=== PATIENT | female | born 1975 | race Caucasian/White ===

== ENCOUNTER 2018-04-21 16:01 | Outpatient (REF) | payer MEDICAID, SELFPAY ==
[2018-04-21 21:19] LABS: ALT 27 U/L (12-78); AST 18 U/L (15-37); Albumin 3.5 g/dL (3.4-5.0); Alkaline Phosphatase 60 U/L (46-116); Anion Gap 8.7 mmol/L (3-11); BUN 14 mg/dL (7-18); Bilirubin, Total 0.3 mg/dL (0.2-1.0); CO2 25.3 mmol/L (21.0-32.0); CREATININE 0.94 mg/dL (0.55-1.02); Chloride 106 mmol/L (98-107); Glucose 88 mg/dL (70-100); Sodium 140 mmol/L (136-145); Total Protein 7.3 g/dL (6.4-8.2)
== END 2018-04-21 16:21 ==
LOC: NCHCN 16:01
PROVIDERS: PCP Family Medicine; Visit Provider Physician Assistant Medical
DX: E03.9 Hypothyroidism, unspecified (principal); R79.89 Other specified abnormal findings of blood chemistry
CPT/HCPCS: 80053; 84443

== ENCOUNTER 2018-10-13 15:37 | Outpatient (REF) | payer OTHER, SELFPAY ==
[2018-10-13 19:25] LABS: ALT 25 U/L (12-78); AST 12 U/L (15-37); Albumin 3.7 g/dL (3.4-5.0); Alkaline Phosphatase 60 U/L (46-116); Anion Gap 8.8 mmol/L (3-11); BUN 15 mg/dL (7-18); Bilirubin, Total 0.4 mg/dL (0.2-1.0); CO2 25.2 mmol/L (21.0-32.0); CREATININE 1.03 mg/dL (0.55-1.02); Calcium 9.1 mg/dL (8.5-10.1); Chloride 106 mmol/L (98-107); Estimated GFR 58.76 (mL/min/1.73m2); Glucose 95 mg/dL (70-100); Potassium 3.9 mmol/L (3.5-5.1); Sodium 140 mmol/L (136-145); TSH 2.64 uIU/mL (0.358-3.74); Total Protein 7.2 g/dL (6.4-8.2)
[2018-10-13 19:33] LABS: Hemoglobin A1C 5.5 % (4.5-6.2)
== END 2018-10-13 15:57 ==
LOC: NCHCN 15:37
PROVIDERS: PCP Family Medicine; Visit Provider Physician Assistant Medical
DX: E03.9 Hypothyroidism, unspecified (principal)
CPT/HCPCS: 80053; 83036; 84443

== ENCOUNTER 2019-01-26 08:52 | Outpatient (REF) | payer OTHER, SELFPAY ==
[2019-01-26 19:37] LABS: Abs Immature Grans 0.04 k/cumm (0.0-0.09); Absolute Basophil Count 0.01 k/cumm (0.0-0.2); Absolute Eosinophil Count 0.08 k/cumm (0.0-0.7); Absolute Lymphocyte Count 1.71 k/cumm (1.2-3.4); Absolute Monocyte Count 0.46 k/cumm (0.11-0.7); Absolute Neutrophil Count 2.58 k/cumm (1.2-6.7); Basophils % 0.2; Eosinophils % 1.6; HCT 43.5 % (36.0-46.0); HGB 14.1 g/dL (12.0-15.5); Immature Grans % 0.8; Mean Corp. HGB Concentration 32.4 g/dL (32.0-36.0); Mean Corpuscular Hemoglobin 32.4 pg (27.0-33.0); Mean Platelet Volume 11.4 fL (8.0-11.0); Monocytes % 9.4; Platelet Count 203 x1000/uL (130-400); RBC 4.35 m/cumm (4.00-5.20); RBC Distribution Width 13.2 % (11.7-14.6); White Blood Cell Count 4.88 k/cumm (4.4-10.8)
== END 2019-01-26 09:12 ==
LOC: NCHCN 08:52
PROVIDERS: PCP Family Medicine; Visit Provider Nurse Practitioner Psychiatric/Mental Health
DX: Z79.899 Other long term (current) drug therapy (principal); F31.81 Bipolar II disorder
CPT/HCPCS: 80164; 85025

== ENCOUNTER → 2019-02-26 08:57 | Outpatient (BNVA) | payer OTHER, SELFPAY | PROVIDERS: PCP Family Medicine; Visit Provider Nurse Practitioner Adult Health | DX: G43.019 Migraine without aura, intractable, without status migrainosus (principal); G25.1 Drug-induced tremor; I10 Essential (primary) hypertension | CPT/HCPCS: 99213 ==

== ENCOUNTER 2019-03-07 20:59 | Outpatient (REF) | payer OTHER, SELFPAY ==
[2019-03-07 22:27] LABS: VALPROIC ACID 73.6 ug/mL (50-100)
== END 2019-03-07 21:19 ==
LOC: NCHCN 20:59
PROVIDERS: PCP Family Medicine; Visit Provider Nurse Practitioner Psychiatric/Mental Health
DX: Z79.899 Other long term (current) drug therapy (principal); Z51.81 Encounter for therapeutic drug level monitoring
CPT/HCPCS: 80164

== ENCOUNTER 2019-08-29 14:35 | Outpatient (REF) | payer OTHER, SELFPAY ==
[2019-08-29 23:08] LABS: Abs Immature Grans 0.04 k/cumm (0.0-0.09); Absolute Basophil Count 0.01 k/cumm (0.0-0.2); Absolute Neutrophil Count 2.59 k/cumm (1.2-6.7); Basophils % 0.2; Immature Grans % 0.8 %; Lymphocytes % 30.4; Mean Corp. HGB Concentration 34.1 g/dL (32.0-36.0); Mean Corpuscular Hemoglobin 34.9 pg (27.0-33.0); Mean Corpuscular Volume 102.3 fL (80-95); Mean Platelet Volume 11.2 fL (8.0-11.0); Monocytes % 14.2; Neutrophils % 52.4; Platelet Count 180 x1000/uL (130-400); RBC Distribution Width 12.6 % (11.7-14.6); White Blood Cell Count 4.94 k/cumm (4.4-10.8)
[2019-08-29 23:23] LABS: ALT 72 U/L (14-59); AST 69 U/L (15-37); Albumin 3.6 g/dL (3.4-5.0); Alkaline Phosphatase 53 U/L (46-116); Anion Gap 12.3 mmol/L (3-11); BUN 12 mg/dL (7-18); Bilirubin, Total 0.3 mg/dL (0.2-1.0); CO2 25.7 mmol/L (21.0-32.0); CREATININE 1.19 mg/dL (0.55-1.02); Calcium 9.2 mg/dL (8.5-10.1); Chloride 107 mmol/L (98-107); Estimated GFR 49.51 (mL/min/1.73m2); Glucose 85 mg/dL (74-106); Potassium 4.6 mmol/L (3.5-5.1); Sodium 145 mmol/L (136-145); Total Protein 7.2 g/dL (6.4-8.2)
[2019-08-29 23:24] LABS: VALPROIC ACID 75.6 ug/mL (50-100)
== END 2019-08-29 14:55 ==
LOC: NCHCN 14:35
PROVIDERS: PCP Family Medicine; Visit Provider Nurse Practitioner Psychiatric/Mental Health
DX: F31.81 Bipolar II disorder (principal); Z51.81 Encounter for therapeutic drug level monitoring; Z79.899 Other long term (current) drug therapy
CPT/HCPCS: 80053; 80164; 85025

== ENCOUNTER 2019-10-31 13:41 | Outpatient (REF) | payer OTHER, SELFPAY ==
[2019-10-31 20:36] LABS: ALT 28 U/L (14-59); AST 16 U/L (15-37); Albumin 3.3 g/dL (3.4-5.0); Alkaline Phosphatase 47 U/L (46-116); Bilirubin, Direct 0.13 mg/dL (0.00-0.20); Bilirubin, Total 0.6 mg/dL (0.2-1.0); Total Protein 6.4 g/dL (6.4-8.2)
== END 2019-10-31 14:01 ==
LOC: NCHCN 13:41
PROVIDERS: PCP Family Medicine; Visit Provider Nurse Practitioner Psychiatric/Mental Health
DX: R79.89 Other specified abnormal findings of blood chemistry (principal)
CPT/HCPCS: 80076

== ENCOUNTER 2020-05-06 11:33 | Outpatient (REF) | payer OTHER, SELFPAY ==
--- NOTE | 2020-05-06 09:30 | PAPFT_PTH ---
PATIENT: Julia Foster LOC: [facility] U#:[id number] AGE/SX: 44/F ROOM: RE05/06/[address]: Gayathri Mcneal : 1975 BED: DIS: 05/06/2020 SPEC #: [id number] RECD: 05/06/20 18:34 STATUS: RENE REQ #: [id number] CODEY: 05/06/20 09:[address]: Gayathri Mcneal DEPT: [facility] Cytology RECD BY: Eliana Abreu ENTERED: 05/06/20 18:34 SP TYPE: PAPFT OTHR DR: Lissette Shetty V Tissues: 1 - CX/ENDOCX FOR PAP SMEARS Procedures: PAP THIN PREP/UVM Screening HPV DNA PROBE Comments: [id number]
[2020-05-06 20:02] LABS: VALPROIC ACID 93.9 ug/mL (50-100)
[2020-05-06 20:05] LABS: Hemoglobin A1C 5.4 % (<5.7)
[2020-05-06 20:20] LABS: AST 83 U/L (15-37); Albumin 3.7 g/dL (3.4-5.0); Alkaline Phosphatase 57 U/L (46-116); Anion Gap 10.6 mmol/L (3-11); BUN 12 mg/dL (7-18); Bilirubin, Total 0.6 mg/dL (0.2-1.0); CO2 24.4 mmol/L (21.0-32.0); CREATININE 1.09 mg/dL (0.55-1.02); Calcium 8.7 mg/dL (8.5-10.1); Calculated LDL 129 mg/dL (<100); Chloride 104 mmol/L (98-107); Cholesterol 196 mg/dL (<200); Estimated GFR 54.78 (mL/min/1.73m2); Glucose 92 mg/dL (74-106); HDL Cholesterol 53 mg/dL (40-60); Potassium 4.5 mmol/L (3.5-5.1); Sodium 139 mmol/L (136-145); Triglyceride 73 mg/dL (<150)
[2020-05-06 20:42] LABS: ALT 99 U/L (14-59); TSH (W/Ref FT4) 3.64 uIU/mL (0.36-3.74); Total Protein 7.2 g/dL (6.4-8.2)
== END 2020-05-06 11:53 ==
LOC: NCHCN 11:33
PROVIDERS: PCP Family Medicine; Visit Provider Physician Assistant Medical
DX: E03.9 Hypothyroidism, unspecified (principal); R79.89 Other specified abnormal findings of blood chemistry; F10.10 Alcohol abuse, uncomplicated; G43.909 Migraine, unspecified, not intractable, without status migrainosus; F31.81 Bipolar II disorder; Z51.81 Encounter for therapeutic drug level monitoring; Z79.899 Other long term (current) drug therapy; K22.70 Barrett's esophagus without dysplasia; Z12.4 Encounter for screening for malignant neoplasm of cervix; Z87.42 Personal history of other diseases of the female genital tract
CPT/HCPCS: 80053; 80061; 88142; 80164; 83036; 84443; 87624

== ENCOUNTER 2021-03-03 12:22 | Inpatient (IN) | payer OTHER, SELFPAY ==
[2021-03-03] VITALS (85 sets, daily range): BP systolic 114–146; BP diastolic 20–96; PULSE 93–170; RESP 1–37; TEMP 32–36.2; O2SAT 86–99
--- NOTE | 2021-03-03 12:15 | RT.EKG_ITS ---
APPROVED REPORT Exam: Resting ECG Reason for Exam: dyspnea Patient Location: E HR:110 bpm ECG Measurements Heart Rate 110 AXIS OK 126 P 59 QRSd 82 QRS -10 QT 321 T 31 QTc 435 Conclusion Sinus tachycardia...rate> 99 Probable left atrial enlargement...P >50mS, <-0.10mV V1
--- NOTE | 2021-03-03 12:30 | DI.CT_ITS ---
Exam(s) CT CHEST PE CTA EXAM: CT CHEST PE CTA CLINICAL HISTORY: shortness of breath. TECHNIQUE: Imaging Protocol: Axial CT angiography was performed with multi-slice acquisition and mu lti-planar and/or 3D reconstructions. CONTRAST MATERIAL: Intravenous: Omnipaque 350 Contrast volume:81 cc COMPARISON: CT CHEST WITH CONTRAST from 02/10/2012 FINDINGS: Pulmonary Arteries: No evidence of filling defect to suggest pulmonary emboli. Tracheobronchial tree: Patent where visualized. Mediastinum and Nano: No dominant adenopathy or fluid collection. Moderate-sized hiatal hernia. Pulmonary parenchyma: Increased opacities both upper lobes consistent with pneumonitis. Minimal incr eased opacities bilateral lower lobes. No dominant measurable mass. Pleura: No effusion or pneumothorax. Heart: The heart is not dilated. No coronary artery calcifications are seen. Aorta: Thoracic aorta non-dilated. Upper abdomen: Unremarkable. Bones: Normal. IMPRESSION: Bilateral pneumonitis. No focal consolidation. No evidence of pulmonary embolism. RADIATION DOSE DELIVERED: 566.77mGy.cm Total DLP DATA REPOSITORY: All CT scans at this facility are submitted to the National Radiology Data Registry (NRDR) Dose Index Registry (DIR) with the [employer] (ACR). RADIATION OPTIMIZATION: All CT scans at this facility use at least one of these dose optimization te chniques: automated exposure control; mA and/or kV adjustment per patient size (includes targeted exa ms where dose is matched to clinical indication); or iterative reconstruction.
[2021-03-03 12:40] LABS: Abs Immature Grans 0.12 10^3/uL (0.0-0.06); Absolute Basophil Count 0.06 10^3/uL (0.0-0.2); Absolute Eosinophil Count 0.06 10^3/uL (0.0-0.7); Absolute Lymphocyte Count 1.48 10^3/uL (1.2-3.4); Absolute Monocyte Count 0.74 10^3/uL (0.1-0.8); Absolute Neutrophil Count 5.76 10^3/uL (1.2-6.7); BE (Venous) -2 mmol/L (-2-3); Basophils % 0.7; Eosinophils % 0.7; HCO3 (Venous) 24 mmol/L (23-28); HCT 47.7 % (36.0-46.0); HGB 15.5 g/dL (11.2-15.7); Immature Grans % 1.5; MCH 32.9 pg (27.0-33.0); MCHC 32.5 % (32.0-36.0); MCV 101.3 fL (80-95); MPV 10.2 fL (8.0-11.0); Neutrophils % 70.1; Nucleated RBC 0 %; O2 Sat (Venous) 52 %; Platelet Count 214 10^3/uL (130-400); RBC 4.71 10^6/uL (3.93-5.22); RDW 12.3 % (11.7-14.6); RDW-SD 46.5 fL; TCO2 (Venous) 22 mmol/L (24-29); WBC 8.22 10^3/uL (4.4-10.8); pCO2 (Venous) 46 mmHg (41-51); pH (Venous) 7.33 (7.31-7.41); pO2 (Venous) 28 mmHg
--- NOTE | 2021-03-03 12:50 | ED.GENADUL_ITS ---
Discharge Plan Disposition Patient Disposition: [facility] INPATIENT Condition: Stable Discharge Details Chief Complaint: SOB Clinical Impression: Asthma, Hypoxia Admit Date/Time: 03/03/21 14:17 Admit Provider: Chava Jackson Attending Provider: Chava Jackson Primary Care Provider: Lissette Shetty V ED Provider: Miquel Alejandra Medical Decision Making 45 yo female with hx of asthma, migraines, who comes in with a week of dyspnea and cough along with intermittent fever to 102 per patient. She went to urgent care today and was treated for asthma exacerbation with 3 duonebs and still was hypoxic in the mid 80's on room air so was transported here and was given another breathing treatment with ems, magnesium, and solumedrol with ems. She states she does feel better though still feels short of breath. Denies chest pain and is over 2 weeks from the J and J vaccine for covid. She denies ivdu, is a smoker, denies alcohol use. Denies recent travel. She does still have apical wheezing on exam with diminished breath sounds at the bases, is mildly tachyca rdic which could be from the beta agonists. No chest pain or pressure so unlikely acs, will obtain ecg and troponin to further evaluate. She has a wells score that is moderate given the hypoxia and tachycardia, will obtain CTA for PE to evaluate for PE vs pneumonia. Will treat with more beta agonists as well when she returns from CT pt feels improved but remains hypoxic and has wheezing on exam. CTA shows nonspecific pneumonitis. Given continued hypoxia will discuss with hospitalist about admission Differential Diagnosis Differential Diagnosis: pe, pneumonia, asthma Medical Records Medical records reviewed: Yes I reviewed the patient's medical records. Imaging Data Radiologic Study: Attestation: I personally reviewed and interpreted this imaging study as follows: Imaging: CT Scan Radiologist's impression: nonspecific pneumonitis Lab Data Lab results reviewed: Yes I reviewed the patient's lab results. ECG Data Attestation: I personally reviewed and interpreted this ECG (s) as follows: Prior ECG tracings: not available for review Interpretation: sinus tachycardia, rate of 110, no acute st t wave ischemic findings HPI General Mode of arrival: ambulatory . Date/Time Provider Initiated Documentation: 03/03/21 12:37 . Limitations to Documentation: no limitations . Information obtained by: patient . History of Present Illness 45 year old F presents to the emergency department with the chief complaint of shortness of breath, described as moderate, Patient reports no radiation. Patient started experiencing this week(s) (1) and it has been constant. No relieving factors improve symptom(s), No exacerbating factors reported . Patient notes cough. Related Data Home Medications Medication Instructions Recorded Confirmed ipratropium-albuterol [Duoneb 0.5 3 ml INHALATION q 6hrs 04/24/14 03/03/21 Mg-3 Mg/3 Ml Soln] albuterol sulfate [Proair Hfa] 2 puff INHALATION Q4H PRN inhaler 01/06/16 03/03/21 pantoprazole 40 mg PO DAILY tab-cap 01/06/16 02/26/19 levothyroxine 75 mcg PO DAILY tab-cap 01/04/18 03/03/21 hydroxyzine HCl 50 mg tablet See Rx Instructions PO Q4H PRN #90 08/31/18 03/03/21 tab-cap fluoxetine 10 mg capsule 10 mg PO DAILY 12/14/18 03/03/21 divalproex 500 mg tablet,extended 1,500 mg PO DAILY #90 tab 02/08/19 03/03/21 release 24 hr gabapentin 300 mg capsule 600 mg PO QHS cap 02/26/19 03/03/21 lurasidone 40 mg tablet 40 mg PO DAILY 02/26/19 03/03/21 topiramate 100 mg tablet 100 mg PO HS #90 tab-cap 09/25/19 03/03/21 topiramate 50 mg tablet 50 mg PO HS #90 tab-cap 09/25/19 03/03/21 Previous Rx's Medication Instructions Recorded hydroxyzine HCl 50 mg tablet See Rx Instructions PO Q4H PRN #90 08/31/18 tab-cap divalproex 500 mg tablet,extended 1,500 mg PO DAILY #90 tab 02/08/19 release 24 hr topiramate 100 mg tablet 100 mg PO HS #90 tab-cap 09/25/19 topiramate 50 mg tablet 50 mg PO HS #90 tab-cap 09/25/19 Allergies Allergy/AdvReac Type Severity Reaction Status Date / Time azithromycin [From Zithromax] Allergy Mild Unverified 03/03/21 12:41 bupropion HCl Allergy Mild Unverified 03/03/21 12:41 [From Wellbutrin] egg Allergy Mild Unverified 03/03/21 12:41 scopolamine Allergy Mild Unverified 03/03/21 12:41 [From Transderm-Scop] shellfish derived Allergy Mild Unverified 03/03/21 12:41 Penicillins Allergy Hives Unverified 03/03/21 12:41 prochlorperazine edisylate Allergy Dystonic Unverified 03/03/21 12:41 [From Compazine] reaction Sulfa (Sulfonamide Allergy Hives Unverified 03/03/21 12:41 Antibiotics) General Stated Complaint: SOB MONIK: 2 Review of Systems All systems reviewed & are unremarkable except as noted in HPI and below Constitutional Constitutional: Denies weakness Gastrointestinal Gastrointestinal: Denies abdominal pain, Denies nausea and Denies vomiting Musculoskeletal Musculoskeletal: Denies joint swelling Neurologic Neurologic: Denies weakness Psychiatric Psychiatric: Denies depression [facility] Medical History (Updated 03/03/21 @ 15:45 by Miquel Alejandra MD) Asthma Episodic when has chest infections/ uses rescue inhaler Barretts esophagus Bipolar disorder Depression (emotion) Rx'd / Past history of Essential tremor GERD (gastroesophageal reflux disease) Hypertension With OC use many years ago. Resolved Migraine Mild renal insufficiency Obstructive sleep apnea Surgical History L shoulder dislocation with arthroscopic surgery 2007 Meniscectomy L knee 2003 [place] Fundoplication 2009 Family History Other Diabetes Hyperlipidemia Personal history of malignant neoplasm Social History Smoking/Tobacco Use Status: Current every day Tobacco Type: cigarettes Smoking risk assessment performed?: Yes Alcohol Intake: never Drug use: Never Do you feel safe at home: Yes Do you feel safe in your relationship?: Yes Exam Const General: no acute distress Orientation: alert HENMT Head: normal to inspection Ears: external ears normal General nose exam: external nose normal Mouth: moist mucous membranes Eyes General: appearance normal, both eyes and all related structures Neck Neck: normal visual inspection Resp Effort & Inspection: no retractions, tachypneic and no use of accessory muscles Cardio Rate: tachycardic Skin General skin exam: no rashes or lesions noted Neuro General: patient alert and patient oriented x3 Extrem General: normal to inspection Psych Mental Status: mental status grossly normal Course Vital Signs Vital signs: Vital Signs Temperature 36.2 C L 03/03/21 12:26 Pulse 113 H 03/03/21 12:26 Respiratory Rate 20 03/03/21 12:26 Blood Pressure 131/85 03/03/21 12:26 Pulse Oximetry 88 L 03/03/21 12:26 Temperature 36.2 C L 03/03/21 12:26 Temperature Source Temporal Artery Scan 03/03/21 12:26 Pulse 113 H 03/03/21 12:26 Respiratory Rate 20 03/03/21 12:26 Respiratory Effort Accessory Muscle Use 03/03/21 12:37 Blood Pressure 131/85 03/03/21 12:26 Blood Pressure Position Supine 03/03/21 12:26 Pulse Oximetry 88 L 03/03/21 12:26 Oxygen Delivery Method Room Air 03/03/21 12:26 Oxygen Flow Rate 0 03/03/21 12:26 Pain Level 0 03/03/21 12:26 Lab/Test Results Lab/Test Results: Laboratory Tests Range/Units 03/03/21 03/03/21 12:30 12:30 WBC (4.4-10.8) 10^3/uL 8.22 RBC (3.93-5.22) 10^6/uL 4.71 Hgb (11.2-15.7) g/dL 15.5 Hct (36.0-46.0) % 47.7 H MCV (80-95) fL 101.3 H MCH (27.0-33.0) pg 32.9 MCHC (32.0-36.0) % 32.5 RDW (11.7-14.6) % 12.3 Plt Count (130-400) 10^3/uL 214 MPV (8.0-11.0) fL 10.2 Immature Gran % 1.5 Neutrophils % 70.1 Lymphocytes % 18.0 Monocytes % 9.0 Eosinophils % 0.7 Basophils % 0.7 Nucleated RBC % % 0 Absolute Neutrophils (1.2-6.7) 10^3/uL 5.76 Absolute Lymphocytes (1.2-3.4) 10^3/uL 1.48 Absolute Monocytes (0.1-0.8) 10^3/uL 0.74 Absolute Eosinophils (0.0-0.7) 10^3/uL 0.06 Absolute Basophils (0.0-0.2) 10^3/uL 0.06 VBG pH (7.31-7.41) 7.33 VBG pCO2 (41-51) mmHg 46 VBG pO2 mmHg 28 VBG HCO3 (23-28) mmol/L 24 VBG Total CO2 (24-29) mmol/L 22 L VBG O2 Saturation % 52 VBG Base Excess (-2-3) mmol/L -2
[2021-03-03 13:00] LABS: Source Nasal/Nares
[2021-03-03 13:05] LABS: ALT 42 U/L (14-59); AST 43 U/L (15-37); Albumin 3.5 g/dL (3.4-5.0); Alkaline Phosphatase 63 U/L (46-116); Anion Gap 9.4 mmol/L (3-11); BUN 11 mg/dL (7-18); CO2 25.6 mmol/L (21.0-32.0); CREATININE 1.1 mg/dL (0.55-1.02); Calcium 9.6 mg/dL (8.5-10.1); Chloride 104 mmol/L (98-107); Estimated GFR 53.96 (mL/min/1.73m2); Glucose 131 mg/dL (74-106); Magnesium 2.9 mg/dL (1.8-2.4); NT-proBNP 79 pg/mL (<300); Potassium 4.6 mmol/L (3.5-5.1); Sodium 139 mmol/L (136-145); TSH (W/Ref FT4) 4.24 uIU/mL (0.36-3.74); Total Protein 8.1 g/dL (6.4-8.2)
[2021-03-03 13:09] LABS: Troponin I < 0.05 ng/mL (<0.06)
[2021-03-03 13:29] LABS: FREE T4 1.04 ng/dL (0.76-1.46)
[2021-03-03] MEDS: Omnipaque 350 MG/ML 100 ML BTL IJ (13:32)
[2021-03-03] MEDS: Normal Saline - Diluent 50 ML VIAL IV (13:33)
[2021-03-03 14:00] LABS: COVID-19 PCR Negative (Negative)
--- NOTE | 2021-03-03 15:38 | PUCC_ITS ---
General Date of Service Date of service: 03/03/21 Time of Service: 14:30 Admit Date Admit Date: 03/03/21 Reason for Admission to ICU: Hypoxia, continuous albuterol, high supplemental oxygen requirements Assessment and Plan Assessment and plan (1) Respiratory failure with hypoxia: Status: Acute Qualifiers: Chronicity: acute Qualified Code(s): J96.01 - Acute respiratory failure with hypoxia (2) Abnormal chest CT: Status: Acute Assessment and plan: This is a 45-year-old woman with a past medical history of migraines and asthma (well-controlled) who presents in acute hypoxic respiratory failure due to an unknown cause. On exam she does have some intermittent wheezing that is present as well as radiographic evidence of airway inflammation however the likely cause of her respiratory failure is likely due to the process which is causing the small infiltrate. The differential diagnosis for her presenting symptoms and imaging results would include infection versus inflammation, although she does not appear to be toxic and feel a bacterial infection is less likely at this time. These findings could represent an atypical presentation of a typical pneumonia, typical presentation of an atypical pneumonia, and noninfectious inflammatory causes such as a pneumonitis or an autoimmune (Rheumatoid) or vasculitic(Goodpasture's or granulomatosis with polyangiitis) cause. She has not had hemoptysis but has reported blood in her urine that began approximately the same time as her respiratory decline. Given this finding and the appearance of her chest CT we should rule out autoimmune and vasculitic conditions. She certainly should remain in the ICU if she continues to recover require higher amounts of supplemental oxygen and what is safe and appropriate for the floor. See recommendation below. Subjective Critical and life-threatening events over the past 24 hours: This is a 45-year-old woman with a medical history of asthma and migraines who presents today after a 1 week history of worsening shortness of breath. She states that approximately 1 week ago she started feeling as though she had a cold that went into her chest and made her asthma worse. She states that over the past week her breathing has progressively worsened to the point of calling her doctor's office today. She was unable to be seen by her PCP and so she was a direct did go to urgent care. Upon arrival at urgent care her oxygen saturations were reportedly in the mid 80s on room air despite having received 3 [id number]-[id number] nebulizer treatments. She was then transported via EMS received additional nebulizer treatments, magnesium, and Solu-Medrol. She tells me that over the last week she has been experiencing fevers of up to 102 ?F. She also states that she began to notice blood in her urine that began approximately the same time as her respiratory troubles. She denies any change in her vision, she does endorse acid reflux has been treated with a PPI for this, she has significant shortness of breath without associated chest pain, she does not have any abdominal pain and denies any rashes or easy bleeding. She is a current smoker approximately half a pack a day. She states that she had quit however during Covid restarted smoking. She began smoking at the age of 19. She denies any e-cigarette use or vaping. She denies inhalation of any other substances. She does not have a personal or family history of autoimmune disease. She was diagnosed with asthma as a child and states that her asthma has been very well controlled to the point of not requiring any inhalers for the past few months. She does state that she has had approximately 4 diagnosed episodes of pneumonia in the past. She states nothing like this has ever happened to her before. All labs and diagnostic images were personally reviewed, with significant findings as below: Chest CTA 03/03/21 My impression: No PE, no large LAD. There are bilateral upper lobe predominant ground glass infiltrates with some associated septal thickening. There are thickened airways throughout. No bronchiectasis is present. There is significant mosaicism. This is not classic for cardiogenic pulmonary edema. The differential diagnosis is infectious vs inflammatory. Labs: WBC: 8.22, 70% neutrophils, with a neutrophil:lymphocyte ratio of 3.9 Eosinophil: 0.06 VB.33/46 Cr: 1.1 (lower than recent baseline) LFT's ok COVID negative Exam Narrative Exam Narrative: Patient with significant tremors and tachycardia, noted to be from high amounts of albuterol BP 125/20, HR 133, SpO2 95% on 4L NC Const General: acute distress moderate Nutritional Appearance: obese Orientation: alert, awake and oriented x3 HENMT Head: normocephalic and atraumatic Ears: external ears normal and no periauricular adenopathy General nose exam: nasal mucous membranes and turbinates normal Face and sinus: normal facial exam Mouth: oropharynx normal, moist mucous membranes and other (Mallampati 3) Throat: uvula midline Eyes General: appearance normal, both eyes and all related structures Pupils: PERRL Neck Neck: normal visual inspection, no lymphadenopathy and trachea midline Chest Chest: normal inspection of the chest Resp Effort & Inspection: normal respiratory effort Auscultation: clear to auscultation bilaterally, rales (Upper lung thompson) fariha aterally, no rhonchi and wheezes (intermittent scattered expiratory ) Cardio Rate: tachycardic Rhythm: regular rhythm Heart Sounds: S1 normal, S2 normal and no murmurs Pulses: radial pulses present bilaterally GI Inspection: normal to inspection Palpation: soft Skin General skin exam: no rashes or lesions noted Neuro General: patient alert, patient awake and patient oriented x3 Extrem General: no clubbing, cyanosis or edema Psych Mental Status: mental status grossly normal Affect: normal affect Attitude: cooperative Review of Systems All systems reviewed & are unremarkable except as noted in HPI and below Constitutional Constitutional: Reports malaise Eyes Eyes: Denies blind spots and Denies blurry vision ENT Ears, Nose, Mouth, and Throat: Reports as per HPI Cardiovascular Cardiovascular: Denies leg edema and Reports dyspnea Respiratory Respiratory: Reports cough (dry) and Reports dyspnea Gastrointestinal Gastrointestinal: Reports as per HPI Genitourinary Genitourinary: Reports amenorrhea and Reports other (Blood in urine) Musculoskeletal Musculoskeletal: Denies arthralgias and Denies muscle weakness Integumentary/Breasts Skin/Breast: Denies rash Neurologic Neurologic: Reports system reviewed and no additional complaints, except as documented Psychiatric Psychiatric: Reports system reviewed and no additional complaints, except as documented Endocrine Endocrine: Reports system reviewed and no additional complaints, except as documented Hematologic/Lymphatic Hematologic/Lymphatic: Reports system reviewed and no additional complaints, except as documented Allergic/Immunologic Allergic/Immunologic: Reports system reviewed and no additional complaints, except as documented Recommendations Pulmonary: Acute hypoxic respiratory failure - maintain sats >90% - if higher O2 requirements as needed for this, would recommend high flow nasal cannula to achieve this - Incentive Spirometry - Duonebs scheduled q4hr with prn albuterol q2hrs as needed - I would stay away from continuous albuterol as it provoked significant tremors and tachycardia Abnormal chest CT - would recommend checking an SOFIE, RF, and ANCA - would check urine strep pneumo and legionella antigens - would start prednisone 40mg tomorrow (received 125mg methylpred today) Cardiac: Tachycardia - avoid continuous albuterol - would avoid treating medically unless HR>150 persistently or patient becomes unstable Renal: Reported Hematuria - would obtain a UA to assess for blood (last UA from 2014) I&O: Intake & Output 02/28/21 03/01/21 03/02/21 03/03/21 23:59 23:59 23:59 23:59 Weight 99.3 kg Daily Fluid Goal:: Even to negative 500cc GI Nutrition: Mild AST elevation - no work up needed Infectious Disease: CT infiltrates - sputum stain and culture if possible - would treat for CAP (ceftriaxone and doxycycline - allergy to azithromycin listed in chart) - would measure IgA, IgE, IgG, IgG subclasses and IgM given report of recurrent pneumonias Hematologic: Chronic Macrocytosis - can consider measuring B12 Neurologic: History of Migraines - No acute concerns - followed by neurology as an outpatient Endocrine: Mildly elevated TSH - likely represents euthyroid sick syndrome - no need for further work up Lines: - PIV currently adequate Prophylaxis: DVT prophylaxis recommended - Lovenox would be appropriate Patient on PPI at home, would continue here Code Status: Resuscitation Status Full Code
[2021-03-03 16:02] LABS: Troponin I < 0.05 ng/mL (<0.06)
[2021-03-03] MEDS: LORazepam 1 MG TAB PO (17:22)
[2021-03-03] MEDS: Heparin 5,000 UNITS/ML VIAL 5000 UNITS SC (17:26)
[2021-03-03] MEDS: Levalbuterol 0.63 MG/3 ML UPD VIAL UPD ×2 (18:05→21:00)
[2021-03-03] MEDS: Ipratropium 0.5 MG/2.5 ML UPD VIAL UPD ×2 (18:08→21:00)
[2021-03-03] MEDS: Lurasidone 40 MG TAB 80 MG PO (20:59)
[2021-03-03] MEDS: Pantoprazole 40 MG TABCR PO (20:59)
[2021-03-03] MEDS: Divalproex 500 MG TABEC 1500 MG PO (20:59)
[2021-03-03] MEDS: Topiramate 100 MG TAB 200 MG PO (21:06)
[2021-03-03] MEDS: Gabapentin 300 MG CAP PO (21:06)
[2021-03-03] MEDS: guaiFENesin/D-METHORPHAN HB 5 ML CUP 10 ML PO (23:40)
[2021-03-04] VITALS (150 sets, daily range): BP systolic 99–128; BP diastolic 56–90; PULSE 78–133; RESP 1–40; TEMP 31–36.9; O2SAT 84–98
[2021-03-04] MEDS: Ipratropium 0.5 MG/2.5 ML UPD VIAL UPD ×6 (01:18→22:05)
[2021-03-04] MEDS: Heparin 5,000 UNITS/ML VIAL 5000 UNITS SC ×3 (01:19→18:21)
[2021-03-04] MEDS: Levalbuterol 0.63 MG/3 ML UPD VIAL UPD ×6 (01:19→21:56)
[2021-03-04] MEDS: guaiFENesin/D-METHORPHAN HB 5 ML CUP 10 ML PO ×2 (04:41→12:04)
[2021-03-04] MEDS: Levothyroxine 75 MCG TAB PO (06:10)
[2021-03-04 06:41] LABS: Abs Immature Grans 0.11 10^3/uL (0.0-0.06); Absolute Basophil Count 0.03 10^3/uL (0.0-0.2); Absolute Eosinophil Count 0.01 10^3/uL (0.0-0.7); Absolute Monocyte Count 1.96 10^3/uL (0.1-0.8); Basophils % 0.2; Eosinophils % 0.1; HCT 42.7 % (36.0-46.0); HGB 14.2 g/dL (11.2-15.7); Immature Grans % 0.8; Lymphocytes % 12.4; MCH 32.9 pg (27.0-33.0); MCHC 33.3 % (32.0-36.0); MCV 98.8 fL (80-95); MPV 10.5 fL (8.0-11.0); Neutrophils % 72.5; Nucleated RBC 0 %; Platelet Count 227 10^3/uL (130-400); RBC 4.32 10^6/uL (3.93-5.22); RDW 12.5 % (11.7-14.6)
[2021-03-04 06:44] LABS: Absolute Lymphocyte Count 1.74 10^3/uL (1.2-3.4); Absolute Neutrophil Count 10.15 10^3/uL (1.2-6.7)
[2021-03-04 06:58] LABS: Anion Gap 6.8 mmol/L (3-11); BUN 14 mg/dL (7-18); CO2 27.2 mmol/L (21.0-32.0); CREATININE 1.1 mg/dL (0.55-1.02); Calcium 9.4 mg/dL (8.5-10.1); Chloride 101 mmol/L (98-107); Estimated GFR 53.96 (mL/min/1.73m2); Glucose 129 mg/dL (74-106); Potassium 4.7 mmol/L (3.5-5.1); Sodium 135 mmol/L (136-145)
[2021-03-04 07:08] LABS: Diff Comment Agrees w/ Instrument; RBC Morphology Normal
--- NOTE | 2021-03-04 07:36 | HPE_ITS ---
Date of service: 03/03/21 Time of Service: 16:26 Assessment and Plan Assessment and plan (1) Respiratory failure with hypoxia: Status: Acute Assessment and plan: Pulmonology consulted. Supplemental O2 per high-flow system initiated. Scheduled duonebs (xopenx substituted for albuterol) Q4H Xopenex neb Q2H prn. Will initiate prednisone 40mg daily in the AM. Received IV solumedrol on day of admission. Qualifiers: Chronicity: acute Qualified Code(s): J96.01 - Acute respiratory failure with hypoxia (2) Abnormal chest CT: Status: Acute Assessment and plan: Pulmonary following. Inflammatory vs infectious. SOFIE, ANCA, Ig subgroups. Ceftriaxone and doxycycline initiated. Urine legionella and strep pneumo urine antigens ordered; are send out tests and take several days to receive results. (3) Hypertension: Status: None Assessment and plan: SBP in the 130-140's. Cont lisinopril 20mg daily. Monitor. (4) Essential tremor: Status: Acute Assessment and plan: Now with significant BUE tremor secondary to the nebulized albuterol she has received. (5) Bipolar disorder: Status: Chronic Assessment and plan: Cont fluoxetine and Latuda. (6) Migraine headache: Status: Chronic Assessment and plan: No current KAM Cont Depakote. History of Present Illness History of Present Illness Chief Complaint: Shortness of breath Narrative: This is a 45 yo female with a PMH of asthma, IHSAN, migraine headaches. She presented to the ED with c/o appx 1 week history of progressively worsening shortness of air. Her symptoms were initially head congestion, then chest congestion and cough. She was unable to see her PCP on the day of admission and was directed to Urgent Care. She received 3 [id number] nebulized albuterol txs. Her O2 saturations there were reported to be in the mid 80's on RA after the treatments. EMS transported the patient to [facility] ED. She was administered solumedrol 125mg IV enrout, as well as a nebulized Duoneb and magnesium. She endorsed a fever of 102F recently. No purulent sputum. No N/V/diarrhea. She is a smoker; had stopped but during COVID last year she restarted. She does not use a CPAP for her sleep apnea. She has not required using her albuterol for a long period of time until this episode of illness. Her WBC count was normal. Cr of 1.1. COVID was negative. CTA chest was negative for pulmonary embolism. [employer] reading was bilateral upper lobe predominant ground glass infiltrates. Thickened airways throughout. Significant mosaicism. Infectious vs inflammatory. Review of Systems All systems reviewed & are unremarkable except as noted in HPI and below PFSH Medical History (Updated 03/04/21 @ 12:22 by Chava Jackson MD) Asthma Episodic when has chest infections/ uses rescue inhaler Barretts esophagus Bipolar disorder Depression (emotion) Rx'd / Past history of Essential tremor GERD (gastroesophageal reflux disease) Hypertension With OC use many years ago. Resolved Migraine Mild renal insufficiency Obstructive sleep apnea Surgical History L shoulder dislocation with arthroscopic surgery 2007 Meniscectomy L knee 2003 [place] Fundoplication 2009 Family History Other Diabetes Hyperlipidemia Personal history of malignant neoplasm Social History Smoking/Tobacco Use Status: Current every day Tobacco Type: cigarettes Smoking risk assessment performed?: Yes Alcohol Intake: never Drug use: Never Do you feel safe at home: Yes Do you feel safe in your relationship?: Yes Meds Allergies and Home Medications Allergies Allergy/AdvReac Type Severity Reaction Status Date / Time azithromycin [From Zithromax] Allergy Mild Unverified 03/03/21 12:41 bupropion HCl Allergy Mild Unverified 03/03/21 12:41 [From Wellbutrin] egg Allergy Mild Unverified 03/03/21 12:41 scopolamine Allergy Mild Unverified 03/03/21 12:41 [From Transderm-Scop] shellfish derived Allergy Mild Unverified 03/03/21 12:41 Penicillins Allergy Hives Unverified 03/03/21 12:41 prochlorperazine edisylate Allergy Dystonic Unverified 03/03/21 12:41 [From Compazine] reaction Sulfa (Sulfonamide Allergy Hives Unverified 03/03/21 12:41 Antibiotics) Home Medications Medication Instructions Recorded Confirmed Type albuterol sulfate [Proair Hfa] 2 puff INHALATION Q4H PRN inhaler 01/06/16 03/03/21 History levothyroxine 75 mcg PO DAILY tab-cap 01/04/18 03/03/21 History fluoxetine 10 mg capsule 10 mg PO DAILY 12/14/18 03/03/21 History gabapentin 300 mg capsule 300 mg PO QHS cap 02/26/19 03/03/21 History divalproex 1,500 mg PO DAILY 03/03/21 03/03/21 History fluticasone propionate [Flovent 1 inh INHALATION BID 03/03/21 03/03/21 History HFA] lisinopril 20 mg PO DAILY 03/03/21 03/03/21 History lurasidone [Latuda] 80 mg PO QPM 03/03/21 03/03/21 History pantoprazole 40 mg PO BID 03/03/21 03/03/21 History topiramate 200 mg PO DAILY 03/03/21 03/03/21 History Exam Const General: cooperative and no acute distress Nutritional Appearance: obese Orientation: alert and oriented x3 Eyes Sclera: sclerae normal Pupils: PERRL Neck Neck: normal visual inspection and no JVD Resp Effort & Inspection: normal respiratory effort Auscultation: diminished lung sounds and no wheezes Cardio Rate: tachycardic Rhythm: regular rhythm Heart Sounds: S1 normal and S2 normal GI Palpation: soft and nontender Skin General skin exam: no rashes or lesions noted Extrem General: no pedal edema and no calf tenderness Psych Appearance: grossly normal Mental Status: mental status grossly normal Speech and Movement: speech and movement normal Affect: normal affect Results Labs Result diagrams: 03/04/21 06:05 03/04/21 06:05 Labs: Laboratory Results - last 24 hr 03/03/21 03/03/21 03/03/21 12:30 12:30 12:30 WBC 8.22 RBC 4.71 Hgb 15.5 Hct 47.7 H MCV 101.3 H MCH 32.9 MCHC 32.5 RDW 12.3 Plt Count 214 MPV 10.2 Immature Gran % 1.5 Neutrophils % 70.1 Lymphocytes % 18.0 Monocytes % 9.0 Eosinophils % 0.7 Basophils % 0.7 Nucleated RBC % 0 Absolute Neutrophils 5.76 Absolute Lymphocytes 1.48 Absolute Monocytes 0.74 Absolute Eosinophils 0.06 Absolute Basophils 0.06 RBC Morphology VBG pH 7.33 VBG pCO2 46 VBG pO2 28 VBG HCO3 24 VBG Total CO2 22 L VBG O2 Saturation 52 VBG Base Excess -2 Sodium 139 Potassium 4.6 Chloride 104 Carbon Dioxide 25.6 Anion Gap 9.4 BUN 11 Creatinine 1.1 H Estimated GFR/1.73 m2 53.96 Glucose 131 H Calcium 9.6 Magnesium 2.9 H Total Bilirubin 1.0 AST 43 H ALT 42 Alkaline Phosphatase 63 Troponin I < 0.05 NT-Pro-B Natriuret Pep 79 Total Protein 8.1 Albumin 3.5 TSH 4.24 H Free T4 1.04 COVID-19 Source SARS-CoV-2 (PCR) 03/03/21 03/03/21 03/04/21 12:55 15:30 06:05 WBC RBC Hgb Hct MCV MCH MCHC RDW Plt Count MPV Immature Gran % Neutrophils % Lymphocytes % Monocytes % Eosinophils % Basophils % Nucleated RBC % Absolute Neutrophils Absolute Lymphocytes Absolute Monocytes Absolute Eosinophils Absolute Basophils RBC Morphology VBG pH VBG pCO2 VBG pO2 VBG HCO3 VBG Total CO2 VBG O2 Saturation VBG Base Excess Sodium 135 L Potassium 4.7 Chloride 101 Carbon Dioxide 27.2 Anion Gap 6.8 BUN 14 Creatinine 1.1 H Estimated GFR/1.73 m2 53.96 Glucose 129 H Calcium 9.4 Magnesium 2.0 Total Bilirubin AST ALT Alkaline Phosphatase Troponin I < 0.05 NT-Pro-B Natriuret Pep Total Protein Albumin TSH Free T4 COVID-19 Source Nasal/Nares SARS-CoV-2 (PCR) Negative 03/04/21 06:05 WBC 14.00 H D RBC 4.32 Hgb 14.2 Hct 42.7 MCV 98.8 H MCH 32.9 MCHC 33.3 RDW 12.5 Plt Count 227 MPV 10.5 Immature Gran % 0.8 Neutrophils % 72.5 Lymphocytes % 12.4 Monocytes % 14.0 Eosinophils % 0.1 Basophils % 0.2 Nucleated RBC % 0 Absolute Neutrophils 10.15 H Absolute Lymphocytes 1.74 Absolute Monocytes 1.96 H Absolute Eosinophils 0.01 Absolute Basophils 0.03 RBC Morphology Normal VBG pH VBG pCO2 VBG pO2 VBG HCO3 VBG Total CO2 VBG O2 Saturation VBG Base Excess Sodium Potassium Chloride Carbon Dioxide Anion Gap BUN Creatinine Estimated GFR/1.73 m2 Glucose Calcium Magnesium Total Bilirubin AST ALT Alkaline Phosphatase Troponin I NT-Pro-B Natriuret Pep Total Protein Albumin TSH Free T4 COVID-19 Source SARS-CoV-2 (PCR) Last Vital Signs Temp 36.2 C L 03/03/21 20:12 Pulse 96 H 03/04/21 06:01 Resp 18 03/04/21 06:01 BP 126/82 03/04/21 06:01 Pulse Ox 97 03/04/21 06:01
[2021-03-04] MEDS: Mometasone 220 MCG 14 DOSE INHALER IH (07:52)
--- NOTE | 2021-03-04 08:21 | PUCC_ITS ---
General Date of Service Date of service: 03/04/21 Time of Service: 08:00 Admit Date Admit Date: 03/03/20 Reason for Admission to ICU: Hypoxic respiratory failure Assessment and Plan Assessment and plan (1) Respiratory failure with hypoxia: Status: Acute Qualifiers: Chronicity: acute Qualified Code(s): J96.01 - Acute respiratory failure with hypoxia (2) Abnormal chest CT: Status: Acute Assessment and plan: This is a 45-year-old woman with a past medical history of migraines, IHSAN (not on CPAP) and asthma (well-controlled) who presents in acute hypoxic respiratory failure due to an unknown cause. On exam she does has wheezing that is present as well as radiographic evidence of airway inflammation however the likely cause of her respiratory failure is likely due to the process which is causing the small infiltrate. The differential diagnosis for her presenting symptoms and imaging results would include infection versus inflammation, although she does not appear to be toxic and feel a bacterial infection is less likely at this time. These findings could represent an atypical presentation of a typical pneumonia, typical presentation of an atypical pneumonia, and noninfectious inflammatory causes such as a pneumonitis or an autoimmune (Rheumatoid) or vasculitic(Goodpasture's or granulomatosis with polyangiitis) cause. She has not had hemoptysis but has reported blood in her urine that began approximately the same time as her respiratory decline. Given this finding and the appearance of her chest CT we should rule out autoimmune and vasculitic conditions. She certainly should remain in the ICU if she continues to recover require higher amounts of supp lemental oxygen and what is safe and appropriate for the floor. See recommendation below. Subjective Critical and life-threatening events over the past 24 hours: Patient desaturated overnight, was placed on high flow nasal cannula, currently on 40/40 Patient states that she is feeling ok. She believes her breathing is slightly improved from yesterday. New labs and imaging: WBC count now 14 with 72.5% neutrophils Exam Narrative Exam Narrative: Tremors improved. Temp: 36.4 BP 126/82 MAP 92, HR 96, SpO2 97% on 40%/40L High flow nasal cannula Const General: acute distress moderate Nutritional Appearance: obese Orientation: alert, awake and oriented x3 HENMT Head: normocephalic and atraumatic Ears: external ears normal and no periauricular adenopathy General nose exam: nasal mucous membranes and turbinates normal Face and sinus: normal facial exam Mouth: oropharynx normal, moist mucous membranes and other (Mallampati 3) Throat: uvula midline Eyes General: appearance normal, both eyes and all related structures Pupils: PERRL Neck Neck: normal visual inspection, no lymphadenopathy and trachea midline Chest Chest: normal inspection of the chest Resp Effort & Inspection: normal respiratory effort Auscultation: clear to auscultation bilaterally, rales (Upper lung thompson) bilaterally, no rhonchi and wheezes expiratory wheezes, lower bilaterally and upper bilaterally Cardio Rate: regular rate Rhythm: regular rhythm Heart Sounds: S1 normal, S2 normal and no murmurs Pulses: radial pulses present bilaterally GI Inspection: normal to inspection Palpation: soft Skin General skin exam: no rashes or lesions noted Neuro General: patient alert, patient awake and patient oriented x3 Extrem General: no clubbing, cyanosis or edema Psych Mental Status: mental status grossly normal Affect: normal affect Attitude: cooperative Review of Systems All systems reviewed & are unremarkable except as noted in HPI and below Constitutional Constitutional: Reports malaise Eyes Eyes: Denies blind spots and Denies blurry vision ENT Ears, Nose, Mouth, and Throat: Reports as per HPI Cardiovascular Cardiovascular: Denies leg edema and Reports dyspnea Respiratory Respiratory: Reports cough (dry) and Reports dyspnea Gastrointestinal Gastrointestinal: Reports as per HPI Genitourinary Genitourinary: Reports amenorrhea and Reports other (Blood in urine) Musculoskeletal Musculoskeletal: Denies arthralgias and Denies muscle weakness Integumentary/Breasts Skin/Breast: Denies rash Neurologic Neurologic: Reports system reviewed and no additional complaints, except as documented Psychiatric Psychiatric: Reports system reviewed and no additional complaints, except as do cumented Endocrine Endocrine: Reports system reviewed and no additional complaints, except as documented Hematologic/Lymphatic Hematologic/Lymphatic: Reports system reviewed and no additional complaints, except as documented Allergic/Immunologic Allergic/Immunologic: Reports system reviewed and no additional complaints, except as documented Recommendations Pulmonary: Acute hypoxic respiratory failure - maintain sats >90% - wean HFNC as able - Incentive Spirometry - Xopenex and Atrovent nebs q4hrs good, would add prn albuterol q2hrs as needed - low grade tachycardia is unlikely to cause any concerning hemodynamic abnormalities in this yound patient - She likely does not need the inhaled mometasone given the systemic steroids, but there is no harm in doing this either Abnormal chest CT - would recommend checking an SOFIE, RF, and ANCA - would check urine strep pneumo and legionella antigens - would continue with prednisone 40mg daily for now IHSAN not on CPAP - she likely desaturated at home given her untreated IHSAN - would be reasonable to allow sats to 85% while sleeping to allow FiO2 weaning Cardiac: Tachycardia, improved - avoid continuous albuterol - would avoid treating medically unless HR>150 persistently or patient becomes unstable Renal: Hematuria - obtain UA to assess for blood/protein I&O: Intake & Output 03/01/21 03/02/21 03/03/21 03/04/21 23:59 23:59 23:59 23:59 Intake Total 1740 / 1740 700 / 700 Output Total 650 / 650 550 / 550 Balance 1090 / 1090 150 / 150 Weight 94.6 kg Daily Fluid Goal:: - she was positive 1L yesterday, this may be detrimental to her respiratory status dry lungs are happy lungs - would recommend diuresis with 40mg IV Lasix today to ensure a -500cc fluid balance GI Nutrition: Mild AST elevation - no work up needed Nutrition - normal diet fine Date of Last Bowel Movement: 03/03/21 Infectious Disease: CT infiltrates - sputum stain and culture if possible - would treat for CAP (ceftriaxone and doxycycline - allergy to azithromycin listed in chart) - would measure IgA, IgE, IgG, IgG subclasses and IgM given report of recurrent pneumonias Neurologic: History of Migraines - No acute concerns Endocrine: Chronic Macrocytosis - can consider measuring B12 Lines: - PIV currently adequate Prophylaxis: DVT prophylaxis recommended - Lovenox would be appropriate Patient on PPI at home, would continue here Code Status: Resuscitation Status Full Code
[2021-03-04] MEDS: Pantoprazole 40 MG TABCR PO ×2 (08:31→20:09)
[2021-03-04] MEDS: FLUoxetine 10 MG TAB PO (08:31)
[2021-03-04] MEDS: Lisinopril 20 MG TAB PO (08:31)
[2021-03-04] MEDS: predniSONE 20 MG TAB 40 MG PO (08:31)
[2021-03-04] MEDS: Benzonatate 200 MG CAP PO ×3 (08:32→20:07)
[2021-03-04] MEDS: cefTRIAXone 1 GM/50 ML BAG IVPB (10:14)
[2021-03-04 10:20] LABS: Bilirubin Small (Negative); Blood Large (Negative); Clarity Cloudy (Clear); Glucose Negative (Negative); Ketones Trace mg/dL (Negative); Leukocyte Esterase Trace (Negative); Nitrite Negative (Negative); Specific Gravity 1.015 (1.005-1.025)
[2021-03-04] MEDS: Normal Saline Flush 10 ML SYR IVP ×2 (10:25→16:48)
[2021-03-04 10:26] LABS: Bacteria Many HPF (Negative); C & S Indicated? Yes; Casts Negative LPF (Negative); Crystals Negative HPF (Negative); Epithelial Cells Rare HPF (Negative); Mucus Negative (Negative); Other Cells Negative (Negative); RBC >50 HPF (0-2)
[2021-03-04] MEDS: DOXYCYCLINE 100 MG in Normal Saline 100 ML IVPB (11:57)
--- NOTE | 2021-03-04 12:21 | PHA.REVIEW ---
Pharmacy Admission Review - Admission Clinical Review (Last Reviewed 02/26/19 @ 12:32 by Lori Hardy) Abnormal chest CT (Acute) Respiratory failure with hypoxia (Acute) Hypoxia (Acute) Asthma (Acute 05/27/14) azithromycin [From Zithromax] Allergy (Mild, Unverified 03/03/21 12:41) bupropion HCl [From Wellbutrin] Allergy (Mild, Unverified 03/03/21 12:41) egg Allergy (Mild, Unverified 03/03/21 12:41) scopolamine [From Transderm-Scop] Allergy (Mild, Unverified 03/03/21 12:41) shellfish derived Allergy (Mild, Unverified 03/03/21 12:41) Penicillins Allergy (Unverified 03/03/21 12:41) Hives prochlorperazine edisylate [From Compazine] Allergy (Unverified 03/03/21 12:41) Dystonic reaction Sulfa (Sulfonamide Antibiotics) Allergy (Unverified 03/03/21 12:41) Hives Resuscitation Status Full Code Height 5 ft 3 in Weight 94.6 kg - Renal Dosing Renal Dosing: BUN 14 mg/dL (7-18) 03/04/21 06:05 Creatinine 1.1 mg/dL (0.55-1.02) H 03/04/21 06:05 Medications needing adjustments: Reviewed List of meds needing interventions: eCrCl is 71 ml/min using adjusted bw - Anticoagulation Anticoagulation: Hgb 14.2 g/dL (11.2-15.7) 03/04/21 06:05 Hct 42.7 % (36.0-46.0) 03/04/21 06:05 Plt Count 227 10^3/uL (130-400) 03/04/21 06:05 Creatinine 1.1 mg/dL (0.55-1.02) H 03/04/21 06:05 DVT Prophylaxis: Reviewed Medications: Heparin - Opiate Usage Evaluate Pain Scale/Pains Meds: N/A - Relevant Labs Sodium 135 mmol/L (136-145) L 03/04/21 06:05 Potassium 4.7 mmol/L (3.5-5.1) 03/04/21 06:05 Chloride 101 mmol/L (98-107) 03/04/21 06:05 Magnesium 2.0 mg/dL (1.8-2.4) 03/04/21 06:05 Electrolytes, C-Reactive P, ESR: Reviewed - DM Control DM Control: Glucose 129 mg/dL (74-106) H 03/04/21 06:05 Insulin Dosing: N/A - Heart Failure/ND Heart Failure/ND: Troponin I < 0.05 ng/mL (<0.06) 03/03/21 15:30 NT-Pro-B Natriuret Pep 79 pg/mL (<300) 03/03/21 12:30 EF%, TAE's, B-Blockers, Diuretics: Reviewed - BP Control BP Control: Blood Pressure [Left Arm] 117/77 Blood Pressure [Left Arm] 120/78 Blood Pressure [Left Arm] 121/64 Blood Pressure 126/82 Blood Pressure 120/78 Blood Pressure 116/75 If elevated: Reviewed - Qtc Review If Elevated: Reviewed List meds needing interventions: QTc 435 on admission - IV to PO Switch IV Medications: Reviewed - Home Meds Home Med List reviewed: Reviewed Relevent Home Meds Not ordered & why?: all ordered - Current meds Current Medication Order Review: Reviewed (Ceftriazone 1gm q24h + Doxycyline started (abnormal chest ct, inflammation vs infectious))
--- NOTE | 2021-03-04 12:28 | W.PM.PROGNOT ---
Date of Service Date of service: 03/04/21 Time of Service: 12:28 Assessment and Plan Assessment and plan (1) Respiratory failure with hypoxia: Status: Acute Assessment and plan: Pulmonology consult appreciated. Supplemental O2 per high-flow system initiated. Required higher flow during the night likely d/t sleep apnea. Cont scheduled duonebs (xopenx substituted for albuterol) Q4H Xopenex neb Q2H prn. Now on prednisone 40mg daily in the AM. Received IV solumedrol on day of admission. Qualifiers: Chronicity: acute Qualified Code(s): J96.01 - Acute respiratory failure with hypoxia (2) Abnormal chest CT: Status: Acute Assessment and plan: Pulmonary following. Inflammatory vs infectious. SOFIE, ANCA, Ig subgroups. Ceftriaxone and doxycycline initiated. Urine legionella and strep pneumo urine antigens ordered; are send out tests and take several days to receive results. (3) Hypertension: Status: None Assessment and plan: SBP in the 130-140's. Cont lisinopril 20mg daily. Controlled. Monitor. (4) Essential tremor: Status: Acute Assessment and plan: No tremor noted this AM. (5) Bipolar disorder: Status: Chronic Assessment and plan: Cont fluoxetine and Latuda. (6) Migraine headache: Status: Chronic Assessment and plan: No current KAM Cont Depakote. Subjective Subjective Patient reports: feels better, tolerating a regular diet and afebrile; denies diarrhea, nausea and vomiting Interval history since last seen: BUE tremor has improved significantly. Exam Const General: cooperative and no acute distress Nutritional Appearance: obese Orientation: alert and oriented x3 Eyes Sclera: sclerae normal Pupils: PERRL Neck Neck: normal visual inspection and no JVD Resp Effort & Inspection: normal respiratory effort Auscultation: diminished lung sounds and no wheezes Cardio Rate: tachycardic Rhythm: regular rhythm Heart Sounds: S1 normal and S2 normal GI Palpation: soft and nontender Skin General skin exam: no rashes or lesions noted Extrem General: no pedal edema and no calf tenderness Psych Appearance: grossly normal Mental Status: mental status grossly normal Speech and Movement: speech and movement normal Affect: normal affect Objective Last Vital Signs Temp 36.2 C L 03/04/21 08:17 Pulse 95 H 03/04/21 08:17 Resp 30 H 03/04/21 08:17 BP 117/77 03/04/21 08:17 Pulse Ox 97 03/04/21 08:17 Laboratory Results - last 24 hr 03/03/21 03/03/21 03/03/21 12:30 12:30 12:30 WBC 8.22 RBC 4.71 Hgb 15.5 Hct 47.7 H MCV 101.3 H MCH 32.9 MCHC 32.5 RDW 12.3 Plt Count 214 MPV 10.2 Immature Gran % 1.5 Neutrophils % 70.1 Lymphocytes % 18.0 Monocytes % 9.0 Eosinophils % 0.7 Basophils % 0.7 Nucleated RBC % 0 Absolute Neutrophils 5.76 Absolute Lymphocytes 1.48 Absolute Monocytes 0.74 Absolute Eosinophils 0.06 Absolute Basophils 0.06 RBC Morphology VBG pH 7.33 VBG pCO2 46 VBG pO2 28 VBG HCO3 24 VBG Total CO2 22 L VBG O2 Saturation 52 VBG Base Excess -2 Sodium 139 Potassium 4.6 Chloride 104 Carbon Dioxide 25.6 Anion Gap 9.4 BUN 11 Creatinine 1.1 H Estimated GFR/1.73 m2 53.96 Glucose 131 H Calcium 9.6 Magnesium 2.9 H Total Bilirubin 1.0 AST 43 H ALT 42 Alkaline Phosphatase 63 Troponin I < 0.05 NT-Pro-B Natriuret Pep 79 Total Protein 8.1 Albumin 3.5 TSH 4.24 H Free T4 1.04 Urine Color Urine Clarity Urine pH Ur Specific [place] Urine Protein Urine Ketones Urine Blood Urine Nitrite Urine Bilirubin Urine Urobilinogen Ur Leukocyte Esterase Urine RBC Urine WBC Ur Epithelial Cells Urine Crystals Urine Bacteria Urine Casts Urine Mucus Urine Other Ur Culture Indicated? Urine Glucose COVID-19 Source SARS-CoV-2 (PCR) Ur Strep pneumoniae Ag 03/03/21 03/03/21 03/04/21 12:55 15:30 06:05 WBC RBC Hgb Hct MCV MCH MCHC RDW Plt Count MPV Immature Gran % Neutrophils % Lymphocytes % Monocytes % Eosinophils % Basophils % Nucleated RBC % Absolute Neutrophils Absolute Lymphocytes Absolute Monocytes Absolute Eosinophils Absolute Basophils RBC Morphology VBG pH VBG pCO2 VBG pO2 VBG HCO3 VBG Total CO2 VBG O2 Saturation VBG Base Excess Sodium 135 L Potassium 4.7 Chloride 101 Carbon Dioxide 27.2 Anion Gap 6.8 BUN 14 Creatinine 1.1 H Estimated GFR/1.73 m2 53.96 Glucose 129 H Calcium 9.4 Magnesium 2.0 Total Bilirubin AST ALT Alkaline Phosphatase Troponin I < 0.05 NT-Pro-B Natriuret Pep Total Protein Albumin TSH Free T4 Urine Color Urine Clarity Urine pH Ur Specific [place] Urine Protein Urine Ketones Urine Blood Urine Nitrite Urine Bilirubin Urine Urobilinogen Ur Leukocyte Esterase Urine RBC Urine WBC Ur Epithelial Cells Urine Crystals Urine Bacteria Urine Casts Urine Mucus Urine Other Ur Culture Indicated? Urine Glucose COVID-19 Source Nasal/Nares SARS-CoV-2 (PCR) Negative Ur Strep pneumoniae Ag 03/04/21 03/04/21 03/04/21 06:05 09:28 09:28 WBC 14.00 H D RBC 4.32 Hgb 14.2 Hct 42.7 MCV 98.8 H MCH 32.9 MCHC 33.3 RDW 12.5 Plt Count 227 MPV 10.5 Immature Gran % 0.8 Neutrophils % 72.5 Lymphocytes % 12.4 Monocytes % 14.0 Eosinophils % 0.1 Basophils % 0.2 Nucleated RBC % 0 Absolute Neutrophils 10.15 H Absolute Lymphocytes 1.74 Absolute Monocytes 1.96 H Absolute Eosinophils 0.01 Absolute Basophils 0.03 RBC Morphology Normal VBG pH VBG pCO2 VBG pO2 VBG HCO3 VBG Total CO2 VBG O2 Saturation VBG Base Excess Sodium Potassium Chloride Carbon Dioxide Anion Gap BUN Creatinine Estimated GFR/1.73 m2 Glucose Calcium Magnesium Total Bilirubin AST ALT Alkaline Phosphatase Troponin I NT-Pro-B Natriuret Pep Total Protein Albumin TSH Free T4 Urine Color Red Urine Clarity Cloudy Urine pH 7.0 Ur Specific [place] 1.015 Urine Protein 100 H Urine Ketones Trace H Urine Blood Large H Urine Nitrite Negative Urine Bilirubin Small H Urine Urobilinogen 1.0 H Ur Leukocyte Esterase Trace H Urine RBC >50 H Urine WBC 5-10 Ur Epithelial Cells Rare Urine Crystals Negative Urine Bacteria Many Urine Casts Negative Urine Mucus Negative Urine Other Negative Ur Culture Indicated? Yes Urine Glucose Negative COVID-19 Source SARS-CoV-2 (PCR) Ur Strep pneumoniae Ag Cancelled
--- NOTE | 2021-03-04 13:59 | INITIAL_ITS ---
- If Service Date Differs Date of service: 03/04/21 Time of Service: 13:59 Care Management Initial Assess REASON FOR HOSPITALIZATION:: respiratory failure with hypoxia PAST MEDICAL HISTORY/PAST SURGICAL HISTORY:: Medical History (Updated 03/04/21 @ 12:22 by Chava Jackson MD). Asthma. Episodic when has chest infections/ uses rescue inhaler. Barretts esophagus. Bipolar disorder. Depression (emotion). Rx'd / Past history of. Essential tremor. GERD (gastroesophageal reflux disease). Hypertension. With OC use many years ago. Resolved. Migraine. Mild renal insufficiency. Obstructive sleep apnea. Surgical History . L shoulder dislocation with arthroscopic surgery. 2007. Meniscectomy. L knee 2002. Gonzales Fundoplication. 20 PREVIOUS FUNCTIONAL STATUS/SOCIAL/FAMILY SUPPORTS:: Julia lives in an apartment in [place], [place] with her 17 year old daughter. 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 Julia also has a 21 year old son who is in [employer] and is stationed [employer]. Julia is but remains from her . She is independent at baseline. CURRENT FUNCTIONAL STATUS:: Julia was sitting up in bed wjen CM met with her. She stated that she is still feeling quite ill. She shared that she first got sick about 10 days ago and has not improved. Julia's PCP is louis Mcneal from [facility], which is why she has come to [facility] for treatment. ADVANCE DIRECTIVES:: States she has them in [place] but no copy on file at [facility]. Has patient been provided with info about the portal/API?: Yes Did the patient sign up for the portal?: No CODE STATUS:: Full Code INSURANCE COVERAGE / FINANCIAL ISSUES:: [facility] CURRENT HOME/COMMUNITY SERVICES/EQUIPMENT:: none PRIMARY CARE PHYSICIAN:: Louis Mcneal POTENTIAL DISCHARGE NEEDS:: Follow up with PCP and plan of care PATIENT/FAMILY EDUCATION NEEDS:: Review of discharge instructions, medications, activity, follow up plan, Ask Me Three TRANSPORTATION:: via private vehicle with family PLAN:: Julia will be discharged home with no new services. She will follow up with her PCP and plan of care and transport with family. CM will continue to support Julia and assess for discharge planning needs.
[2021-03-04] MEDS: Acetaminophen 325 MG TAB 650 MG PO (14:44)
[2021-03-04 17:11] LABS: Rheumatoid Factor 56.2 IU/mL (<12.0)
[2021-03-04] MEDS: Lurasidone 40 MG TAB 80 MG PO (20:06)
[2021-03-04] MEDS: Divalproex 500 MG TABEC 1500 MG PO (20:07)
[2021-03-04 20:35] LABS: Legionella Ag Detection Urine Negative (Negative)
[2021-03-04] MEDS: Topiramate 100 MG TAB 200 MG PO (21:54)
[2021-03-04] MEDS: Gabapentin 300 MG CAP PO (21:55)
[2021-03-05] VITALS (14 sets, daily range): BP systolic 102–117; BP diastolic 63–81; PULSE 79–94; RESP 4–19; TEMP 36.3–37; O2SAT 91–94
[2021-03-05] MEDS: DOXYCYCLINE 100 MG in Normal Saline 100 ML IVPB ×3 (01:06→23:50)
[2021-03-05] MEDS: Ipratropium 0.5 MG/2.5 ML UPD VIAL UPD ×6 (01:07→22:23)
[2021-03-05] MEDS: Normal Saline Flush 10 ML SYR IVP ×2 (01:07→23:51)
[2021-03-05] MEDS: Heparin 5,000 UNITS/ML VIAL 5000 UNITS SC ×3 (01:11→17:10)
[2021-03-05] MEDS: Levalbuterol 0.63 MG/3 ML UPD VIAL UPD ×6 (01:16→22:11)
[2021-03-05] MEDS: Levothyroxine 75 MCG TAB PO (05:49)
[2021-03-05 06:46] LABS: HCT 43.4 % (36.0-46.0); HGB 14.6 g/dL (11.2-15.7); MCH 33.9 pg (27.0-33.0); MCHC 33.6 % (32.0-36.0); MCV 100.7 fL (80-95); MPV 10.1 fL (8.0-11.0); Platelet Count 257 10^3/uL (130-400); RBC 4.31 10^6/uL (3.93-5.22); RDW 12.8 % (11.7-14.6); RDW-SD 47.7 fL; WBC 13.45 10^3/uL (4.4-10.8)
[2021-03-05] MEDS: Mometasone 220 MCG 14 DOSE INHALER IH (07:59)
--- NOTE | 2021-03-05 08:01 | PDOC.CMPRO ---
- If Service Date Differs Date of service: 03/05/21 Time of Service: 08:02 Care Management Progress Note S/O:Julia was sitting up in a chair when CM met with her this morning. She was smiling brightly and stated that she is feeling much better. She was taken off high flow oxygen last evening and her oxygen saturation levels have been between 91 and 93% on room air today. Once again, when questioned, Julia denied the need for any new services at discharge as she has her daughter to help her at home. A: Julia is a 45 year old woman admitted on 03/03/21 with Pneumonitis P:Julia will be discharged home with no new services. She will follow up with her PCP and plan of care and transport with family. CM will continue to support Julia and assess for discharge planning needs.
[2021-03-05] MEDS: Benzonatate 200 MG CAP PO ×3 (08:23→19:16)
[2021-03-05] MEDS: FLUoxetine 10 MG TAB PO (08:23)
[2021-03-05] MEDS: Pantoprazole 40 MG TABCR PO ×2 (08:23→19:16)
[2021-03-05] MEDS: predniSONE 20 MG TAB 40 MG PO (08:23)
[2021-03-05] MEDS: Lisinopril 20 MG TAB PO (08:23)
[2021-03-05] MEDS: cefTRIAXone 1 GM/50 ML BAG IVPB (10:09)
--- NOTE | 2021-03-05 11:30 | CHAPLAIN ---
Julia was sitting up in the chair when I visited. She said she's feeling ok. She's in touch with her daughter by phone, but her daughter has not yet been vaccinated so she won't be coming in to visit Julia.
[2021-03-05] MEDS: guaiFENesin/D-METHORPHAN HB 5 ML CUP 10 ML PO ×2 (12:10→20:45)
[2021-03-05 14:49] LABS: Streptococcus Pneumoniae Ag, U Negative (Negative)
[2021-03-05 15:13] LABS: ANCA Interpretation Negative (Negative)
--- NOTE | 2021-03-05 15:56 | W.PM.PROGNOT ---
Date of Service Date of service: 03/05/21 Time of Service: 15:56 Assessment and Plan Assessment and plan (1) Respiratory failure with hypoxia: Status: Acute Assessment and plan: Pulmonology consulted and following. weaned off supplemental O2 Cont scheduled duonebs (xopenx substituted for albuterol) Q4H Xopenex neb Q2H prn. Now on prednisone 40mg daily in the AM. Qualifiers: Chronicity: acute Qualified Code(s): J96.01 - Acute respiratory failure with hypoxia (2) Abnormal chest CT: Status: Acute Assessment and plan: Pulmonary following. Inflammatory vs infectious. SOFIE, ANCA, Ig subgroups. Ceftriaxone and doxycycline initiated. Urine legionella and strep pneumo urine antigens ordered; are send out tests and take several days to receive results. (3) Hypertension: Status: None Assessment and plan: SBP in the 130-140's. Cont lisinopril 20mg daily. Controlled. Monitor. (4) Essential tremor: Status: Acute Assessment and plan: No tremor noted this AM. (5) Bipolar disorder: Status: Chronic Assessment and plan: Cont fluoxetine and Latuda. (6) Migraine headache: Status: Chronic Assessment and plan: No current KAM Cont Depakote. (7) Discharge planning issues: Status: Acute Assessment and plan: plan to discharge home tomorrow if remains medically stable. discussed with Dr Jackson. Subjective Subjective Patient reports: no new complaints, feels better, tolerating liquids well, tolerating a regular diet and afebrile; denies shortness of breath Interval history since last seen: weaned off oxygen. still coughing but non productive and improved. Exam Const General: cooperative and no acute distress Nutritional Appearance: obese Orientation: alert and oriented x3 Eyes Sclera: sclerae normal Pupils: PERRL Neck Neck: normal visual inspection and no JVD Resp Effort & Inspection: normal respiratory effort Auscultation: diminished lung sounds and no wheezes Cardio Rate: tachycardic Rhythm: regular rhythm Heart Sounds: S1 normal and S2 normal GI Palpation: soft and nontender Skin General skin exam: no rashes or lesions noted Extrem General: no pedal edema and no calf tenderness Psych Appearance: grossly normal Mental Status: mental status grossly normal Speech and Movement: speech and movement normal Affect: normal affect Objective Last Vital Signs Temp 36.5 C 03/05/21 15:22 Pulse 80 03/05/21 15:22 Resp 17 03/05/21 15:22 BP 102/63 03/05/21 15:22 Pulse Ox 92 03/05/21 15:22 Laboratory Results - last 24 hr 03/04/21 03/04/21 03/04/21 06:05 09:28 11:55 WBC RBC Hgb Hct MCV MCH MCHC RDW Plt Count MPV Rheumatoid Factor 56.2 H ANCA Immunofluorescen Negative ANCA Titer Not Applicable ANCA Pattern Not Applicable Urine Legionella Ag Negative Ur Strep pneumoniae Ag Negative 03/05/21 06:25 WBC 13.45 H RBC 4.31 Hgb 14.6 Hct 43.4 MCV 100.7 H MCH 33.9 H MCHC 33.6 RDW 12.8 Plt Count 257 MPV 10.1 Rheumatoid Factor ANCA Immunofluorescen ANCA Titer ANCA Pattern Urine Legionella Ag Ur Strep pneumoniae Ag
[2021-03-05] MEDS: Divalproex 500 MG TABEC 1500 MG PO (19:16)
[2021-03-05] MEDS: Lurasidone 40 MG TAB 80 MG PO (19:16)
[2021-03-05] MEDS: Topiramate 100 MG TAB 200 MG PO (22:08)
[2021-03-05] MEDS: Gabapentin 300 MG CAP PO (22:09)
[2021-03-05] MEDS: Normal Saline 500 ML IV (23:51)
[2021-03-06] VITALS (9 sets, daily range): BP systolic 107–113; BP diastolic 70–72; PULSE 83–85; RESP 4–18; TEMP 36.3–36.9; O2SAT 92–94
[2021-03-06] MEDS: Levalbuterol 0.63 MG/3 ML UPD VIAL UPD ×4 (01:20→13:41)
[2021-03-06] MEDS: Heparin 5,000 UNITS/ML VIAL 5000 UNITS SC ×2 (01:20→09:26)
[2021-03-06] MEDS: Normal Saline Flush 10 ML SYR IVP (01:20)
[2021-03-06] MEDS: Ipratropium 0.5 MG/2.5 ML UPD VIAL UPD ×4 (01:20→13:42)
[2021-03-06] MEDS: Levothyroxine 75 MCG TAB PO (06:12)
[2021-03-06] MEDS: FLUoxetine 10 MG TAB PO (07:06)
[2021-03-06] MEDS: Benzonatate 200 MG CAP PO ×2 (07:06→13:42)
[2021-03-06] MEDS: Lisinopril 20 MG TAB PO (07:07)
[2021-03-06] MEDS: Pantoprazole 40 MG TABCR PO (07:07)
[2021-03-06] MEDS: predniSONE 20 MG TAB 40 MG PO (07:07)
[2021-03-06] MEDS: Mometasone 220 MCG 14 DOSE INHALER IH (07:50)
[2021-03-06 08:41] LABS: IgE >3000 IU/mL (<158)
--- NOTE | 2021-03-06 08:51 | PGE_ITS ---
General Date Of Service Date of service: 03/06/21 Time of Service: 08:45 Requesting physician: Chava Jakcson Reason for Consult: Abnormal Chest CT Subjective Note Note: Julia is looking much improved today. She states that her breathing is much better and is feeling well. Given that her rheumatoid factor was positive I probed further regarding joint pain. She did state that she has been having increased joint pain in her fingers on both sides for the last few months. Exam Const General: no acute distress Nutritional Appearance: obese HENMT Head: normocephalic Ears: external ears normal and no periauricular adenopathy General nose exam: nasal mucous membranes and turbinates normal Face and sinus: sinuses nontender Mouth: oropharynx normal and moist mucous membranes Teeth and gingiva: dentition normal Eyes General: appearance normal, both eyes and all related structures Pupils: PERRL Neck Neck: normal visual inspection and no lymphadenopathy Chest Chest: normal inspection of the chest Resp Effort & Inspection: normal respiratory effort Auscultation: no rales, no rhonchi and wheezes expiratory wheezes, lower bilaterally and upper bilaterally Cardio Rate: regular rate Rhythm: regular rhythm Heart Sounds: S1 normal, S2 normal and no murmurs Pulses: radial pulses present bilaterally GI Inspection: normal to inspection Palpation: soft Skin General skin exam: no rashes or lesions noted Neuro General: patient alert, patient awake and patient oriented x3 Extrem General: no clubbing, cyanosis or edema Psych Mental Status: mental status grossly normal Affect: normal affect Attitude: cooperative Objective Last Vital Signs Temp 36.3 C L 03/06/21 03:54 Pulse 85 03/06/21 03:54 Resp 17 03/06/21 03:54 BP 113/72 03/06/21 03:54 Pulse Ox 92 03/06/21 03:54 Laboratory Results - last 24 hr 03/04/21 03/04/21 03/04/21 06:05 09:28 11:55 Rheumatoid Factor 56.2 H ANCA Immunofluorescen Negative ANCA Titer Not Applicable ANCA Pattern Not Applicable Urine Legionella Ag Negative Ur Strep pneumoniae Ag Negative Results Medications Medications: Active Medications Generic Name Dose Route Start Last Admin Trade Name Freq PRN Reason Stop Dose Admin Acetaminophen 650 mg 03/03/21 14:22 03/04/21 14:44 Acetaminophen 325 Mg Tab PO 650 mg Q4H PRN PRN Administration Benzonatate 200 mg 03/04/21 08:30 03/06/21 07:06 Benzonatate 200 Mg Cap PO 200 mg TID YARIEL Administration Dimethicone/Zinc Oxide 0 gm 03/03/21 14:16 Theodora Protect Cream 142 Gm Tube TP PRN PRN Divalproex Sodium 1,500 mg 03/03/21 20:00 03/05/21 19:16 Divalproex 500 Mg Tabec PO 1,500 mg QPM YARIEL Administration Fluoxetine HCl 10 mg 03/04/21 08:30 03/06/21 07:06 Fluoxetine 10 Mg Tab PO 10 mg DAILY YARIEL Administration Gabapentin 300 mg 03/03/21 22:00 03/05/21 22:09 Gabapentin 300 Mg Cap PO 300 mg HS YARIEL Administration Guaifenesin/Dextromethorphan 10 ml 03/03/21 23:05 03/05/21 20:45 Guaifenesin/D-Methorphan Hb 5 Ml Cup PO 10 ml Q4H PRN PRN Administration Heparin Sodium (Porcine) 5,000 units 03/03/21 18:00 03/06/21 01:20 Heparin 5,000 Units/Ml Vial SC 5,000 units Q8H YARIEL Administration Ceftriaxone Sodium/Dextrose 1 gm in 50 mls @ 100 mls/hr 03/04/21 10:00 03/05/21 10:09 Rocephin IVPB 50 mls/hr Q24H YARIEL Administration Doxycycline Hyclate 100 mg/ 100 mls @ 100 mls/hr 03/04/21 12:00 03/06/21 00 :50 Sodium Chloride IVPB Infused Q12H YARIEL Infusion Sodium Chloride 500 mls @ 0 mls/hr 03/04/21 13:39 03/05/21 23:51 Saline 500ml Bag IV 0.12 mls/hr PRN PRN Administration As Directed IV Miscellaneous Supplies 1 each 03/03/21 12:30 Iv Access IV DIRECTED YARIEL Ipratropium [place] 0.5 mg 03/03/21 18:00 03/06/21 06:13 Ipratropium 0.5 Mg/2.5 Ml Upd Vial UPD 0.5 mg Q4H YARIEL Administration Levalbuterol HCl 0.63 mg 03/03/21 15:44 Levalbuterol 0.63 Mg/3 Ml Upd Vial UPD Q2H PRN PRN Levalbuterol HCl 0.63 mg 03/03/21 18:00 03/06/21 06:12 Levalbuterol 0.63 Mg/3 Ml Upd Vial UPD 0.63 mg Q4H YARIEL Administration Levothyroxine Sodium 75 mcg 03/04/21 06:00 03/06/21 06:12 Levothyroxine 75 Mcg Tab PO 75 mcg DAILY@0600 YARIEL Administration Lisinopril 20 mg 03/04/21 08:30 03/06/21 07:07 Lisinopril 20 Mg Tab PO 20 mg DAILY YARIEL Administration Lurasidone HCl 80 mg 03/03/21 20:00 03/05/21 19:16 Lurasidone 40 Mg Tab PO 80 mg QPM YARIEL Administration Mometasone Furoate 0 puff 03/04/21 08:30 03/06/21 07:50 Mometasone 220 Mcg 14 Dose Inhaler IH 1 inh DAILY YARIEL Administration Pantoprazole Sodium 40 mg 03/03/21 20:00 03/06/21 07:07 Pantoprazole 40 Mg Tabcr PO 40 mg BID@0730,1999 YARIEL Administration Polyethylene Glycol 17 gm 03/03/21 14:22 Polyethylene Glycol 3350 17 Gm Packet PO DAILY PRN PRN Constipation Prednisone 40 mg 03/04/21 08:30 03/06/21 07:07 Prednisone 20 Mg Tab PO 40 mg DAILY YARIEL Administration Sodium Chloride 0 ml 03/03/21 12:18 03/06/21 01:20 Normal Saline Flush 10 Ml Syr IVP 10 ml PRN PRN Administration Topiramate 200 mg 03/03/21 22:00 03/05/21 22:08 Topiramate 100 Mg Tab PO 200 mg HS YARIEL Administration Allergies azithromycin [From Zithromax] Allergy (Mild, Unverified 03/03/21 12:41) bupropion HCl [From Wellbutrin] Allergy (Mild, Unverified 03/03/21 12:41) egg Allergy (Mild, Unverified 03/03/21 12:41) scopolamine [From Transderm-Scop] Allergy (Mild, Unverified 03/03/21 12:41) shellfish derived Allergy (Mild, Unverified 03/03/21 12:41) Penicillins Allergy (Unverified 03/03/21 12:41) Hives prochlorperazine edisylate [From Compazine] Allergy (Unverified 03/03/21 12:41) Dystonic reaction Sulfa (Sulfonamide Antibiotics) Allergy (Unverified 03/03/21 12:41) Hives Labs Result Diagrams: 03/05/21 06:25 03/04/21 06:05 Labs: 03/04/21 09:28 Urine - Reflex from Ua Urine Culture - Preliminary Gram Positive [place],Mixed Gram Negative [place]ito Gram Negative Osito#2 Laboratory Tests Range/Units 03/03/21 03/03/21 03/03/21 12:30 12:30 12:30 WBC (4.4-10.8) 10^3/uL 8.22 RBC (3.93-5.22) 10^6/uL 4.71 Hgb (11.2-15.7) g/dL 15.5 Hct (36.0-46.0) % 47.7 H MCV (80-95) fL 101.3 H MCH (27.0-33.0) pg 32.9 MCHC (32.0-36.0) % 32.5 RDW (11.7-14.6) % 12.3 Plt Count (130-400) 10^3/uL 214 MPV (8.0-11.0) fL 10.2 Immature Gran % 1.5 Neutrophils % 70.1 Lymphocytes % 18.0 Monocytes % 9.0 Eosinophils % 0.7 Basophils % 0.7 Nucleated RBC % % 0 Absolute Neutrophils (1.2-6.7) 10^3/uL 5.76 Absolute Lymphocytes (1.2-3.4) 10^3/uL 1.48 Absolute Monocytes (0.1-0.8) 10^3/uL 0.74 Absolute Eosinophils (0.0-0.7) 10^3/uL 0.06 Absolute Basophils (0.0-0.2) 10^3/uL 0.06 RBC Morphology VBG pH (7.31-7.41) 7.33 VBG pCO2 (41-51) mmHg 46 VBG pO2 mmHg 28 VBG HCO3 (23-28) mmol/L 24 VBG Total CO2 (24-29) mmol/L 22 L VBG O2 Saturation % 52 VBG Base Excess (-2-3) mmol/L -2 Sodium (136-145) mmol/L 139 Potassium (3.5-5.1) mmol/L 4.6 Chloride (98-107) mmol/L 104 Carbon Dioxide (21.0-32.0) mmol/L 25.6 Anion Gap (3-11) mmol/L 9.4 BUN (7-18) mg/dL 11 Creatinine (0.55-1.02) mg/dL 1.1 H Estimated GFR/1.73 m2 (mL/min/1.73m2) 53.96 Glucose (74-106) mg/dL 131 H Calcium (8.5-10.1) mg/dL 9.6 Magnesium (1.8-2.4) mg/dL 2.9 H Total Bilirubin (0.2-1.0) mg/dL 1.0 AST (15-37) U/L 43 H ALT (14-59) U/L 42 Alkaline Phosphatase (46-116) U/L 63 Troponin I (<0.06) ng/mL < 0.05 NT-Pro-B Natriuret Pep (<300) pg/mL 79 Total Protein (6.4-8.2) g/dL 8.1 Albumin (3.4-5.0) g/dL 3.5 TSH (0.36-3.74) uIU/mL 4.24 H Free T4 (0.76-1.46) ng/dL 1.04 Urine Color (Yellow) Urine Clarity (Clear) Urine pH (5-8) Ur Specific [place] (1.005-1.025) Urine Protein (Negative) mg/dL Urine Ketones (Negative) mg/dL Urine Blood (Negative) Urine Nitrite (Negative) Urine Bilirubin (Negative) Urine Urobilinogen (Up TO 0.2) EU/dL Ur Leukocyte Esterase (Negative) Urine RBC (0-2) HPF Urine WBC (0-5) HPF Ur Epithelial Cells (Negative) HPF Urine Crystals (Negative) HPF Urine Bacteria (Negative) HPF Urine Casts (Negative) LPF Urine Mucus (Negative) Urine Other (Negative) Ur Culture Indicated? Urine Glucose (Negative) mg/dL Rheumatoid Factor (<12.0) IU/mL ANCA Immunofluorescen (Negative) ANCA Titer ANCA Pattern COVID-19 Source SARS-CoV-2 (PCR) (Negative) Urine Legionella Ag (Negative) Ur Strep pneumoniae Ag (Negative) Range/Units 03/03/21 03/03/21 03/04/21 12:55 15:30 06:05 WBC (4.4-10.8) 10^3/uL RBC (3.93-5.22) 10^6/uL Hgb (11.2-15.7) g/dL Hct (36.0-46.0) % MCV (80-95) fL MCH (27.0-33.0) pg MCHC (32.0-36.0) % RDW (11.7-14.6) % Plt Count (130-400) 10^3/uL MPV (8.0-11.0) fL Immature Gran % Neutrophils % Lymphocytes % Monocytes % Eosinophils % Basophils % Nucleated RBC % % Absolute Neutrophils (1.2-6.7) 10^3/uL Absolute Lymphocytes (1.2-3.4) 10^3/uL Absolute Monocytes (0.1-0.8) 10^3/uL Absolute Eosinophils (0.0-0.7) 10^3/uL Absolute Basophils (0.0-0.2) 10^3/uL RBC Morphology VBG pH (7.31-7.41) VBG pCO2 (41-51) mmHg VBG pO2 mmHg VBG HCO3 (23-28) mmol/L VBG Total CO2 (24-29) mmol/L VBG O2 Saturation % VBG Base Excess (-2-3) mmol/L Sodium (136-145) mmol/L 135 L Potassium (3.5-5.1) mmol/L 4.7 Chloride (98-107) mmol/L 101 Carbon Dioxide (21.0-32.0) mmol/L 27.2 Anion Gap (3-11) mmol/L 6.8 BUN (7-18) mg/dL 14 Creatinine (0.55-1.02) mg/dL 1.1 H Estimated GFR/1.73 m2 (mL/min/1.73m2) 53.96 Glucose (74-106) mg/dL 129 H Calcium (8.5-10.1) mg/dL 9.4 Magnesium (1.8-2.4) mg/dL 2.0 Total Bilirubin (0.2-1.0) mg/dL AST (15-37) U/L ALT (14-59) U/L Alkaline Phosphatase (46-116) U/L Troponin I (<0.06) ng/mL < 0.05 NT-Pro-B Natriuret Pep (<300) pg/mL Total Protein (6.4-8.2) g/dL Albumin (3.4-5.0) g/dL TSH (0.36-3.74) uIU/mL Free T4 (0.76-1.46) ng/dL Urine Color (Yellow) Urine Clarity (Clear) Urine pH (5-8) Ur Specific [place] (1.005-1.025) Urine Protein (Negative) mg/dL Urine Ketones (Negative) mg/dL Urine Blood (Negative) Urine Nitrite (Negative) Urine Bilirubin (Negative) Urine Urobilinogen (Up TO 0.2) EU/dL Ur Leukocyte Esterase (Negative) Urine RBC (0-2) HPF Urine WBC (0-5) HPF Ur Epithelial Cells (Negative) HPF Urine Crystals (Negative) HPF Urine Bacteria (Negative) HPF Urine Casts (Negative) LPF Urine Mucus (Negative) Urine Other (Negative) Ur Culture Indicated? Urine Glucose (Negative) mg/dL Rheumatoid Factor (<12.0) IU/mL ANCA Immunofluorescen (Negative) ANCA Titer ANCA Pattern COVID-19 Source Nasal/Nares SARS-CoV-2 (PCR) (Negative) Negative Urine Legionella Ag (Negative) Ur Strep pneumoniae Ag (Negative) Range/Units 03/04/21 03/04/21 03/04/21 06:05 06:05 09:28 WBC (4.4-10.8) 10^3/uL 14.00 H D RBC (3.93-5.22) 10^6/uL 4.32 Hgb (11.2-15.7) g/dL 14.2 Hct (36.0-46.0) % 42.7 MCV (80-95) fL 98.8 H MCH (27.0-33.0) pg 32.9 MCHC (32.0-36.0) % 33.3 RDW (11.7-14.6) % 12.5 Plt Count (130-400) 10^3/uL 227 MPV (8.0-11.0) fL 10.5 Immature Gran % 0.8 Neutrophils % 72.5 Lymphocytes % 12.4 Monocytes % 14.0 Eosinophils % 0.1 Basophils % 0.2 Nucleated RBC % % 0 Absolute Neutrophils (1.2-6.7) 10^3/uL 10.15 H Absolute Lymphocytes (1.2-3.4) 10^3/uL 1.74 Absolute Monocytes (0.1-0.8) 10^3/uL 1.96 H Absolute Eosinophils (0.0-0.7) 10^3/uL 0.01 Absolute Basophils (0.0-0.2) 10^3/uL 0.03 RBC Morphology Normal VBG pH (7.31-7.41) VBG pCO2 (41-51) mmHg VBG pO2 mmHg VBG HCO3 (23-28) mmol/L VBG Total CO2 (24-29) mmol/L VBG O2 Saturation % VBG Base Excess (-2-3) mmol/L Sodium (136-145) mmol/L Potassium (3.5-5.1) mmol/L Chloride (98-107) mmol/L Carbon Dioxide (21.0-32.0) mmol/L Anion Gap (3-11) mmol/L BUN (7-18) mg/dL Creatinine (0.55-1.02) mg/dL Estimated GFR/1.73 m2 (mL/min/1.73m2) Glucose (74-106) mg/dL Calcium (8.5-10.1) mg/dL Magnesium (1.8-2.4) mg/dL Total Bilirubin (0.2-1.0) mg/dL AST (15-37) U/L ALT (14-59) U/L Alkaline Phosphatase (46-116) U/L Troponin I (<0.06) ng/mL NT-Pro-B Natriuret Pep (<300) pg/mL Total Protein (6.4-8.2) g/dL Albumin (3.4-5.0) g/dL TSH (0.36-3.74) uIU/mL Free T4 (0.76-1.46) ng/dL Urine Color (Yellow) Red Urine Clarity (Clear) Cloudy Urine pH (5-8) 7.0 Ur Specific [place] (1.005-1.025) 1.015 Urine Protein (Negative) mg/dL 100 H Urine Ketones (Negative) mg/dL Trace H Urine Blood (Negative) Large H Urine Nitrite (Negative) Negative Urine Bilirubin (Negative) Small H Urine Urobilinogen (Up TO 0.2) EU/dL 1.0 H Ur Leukocyte Esterase (Negative) Trace H Urine RBC (0-2) HPF >50 H Urine WBC (0-5) HPF 5-10 Ur Epithelial Cells (Negative) HPF Rare Urine Crystals (Negative) HPF Negative Urine Bacteria (Negative) HPF Many Urine Casts (Negative) LPF Negative Urine Mucus (Negative) Negative Urine Other (Negative) Negative Ur Culture Indicated? Yes Urine Glucose (Negative) mg/dL Negative Rheumatoid Factor (<12.0) IU/mL 56.2 H ANCA Immunofluorescen (Negative) Negative ANCA Titer Not Applicable ANCA Pattern Not Applicable COVID-19 Source SARS-CoV-2 (PCR) (Negative) Urine Legionella Ag (Negative) Ur Strep pneumoniae Ag (Negative) Range/Units 03/04/21 03/04/21 03/05/21 09:28 11:55 06:25 WBC (4.4-10.8) 10^3/uL 13.45 H RBC (3.93-5.22) 10^6/uL 4.31 Hgb (11.2-15.7) g/dL 14.6 Hct (36.0-46.0) % 43.4 MCV (80-95) fL 100.7 H MCH (27.0-33.0) pg 33.9 H MCHC (32.0-36.0) % 33.6 RDW (11.7-14.6) % 12.8 Plt Count (130-400) 10^3/uL 257 MPV (8.0-11.0) fL 10.1 Immature Gran % Neutrophils % Lymphocytes % Monocytes % Eosinophils % Basophils % Nucleated RBC % % Absolute Neutrophils (1.2-6.7) 10^3/uL Absolute Lymphocytes (1.2-3.4) 10^3/uL Absolute Monocytes (0.1-0.8) 10^3/uL Absolute Eosinophils (0.0-0.7) 10^3/uL Absolute Basophils (0.0-0.2) 10^3/uL RBC Morphology VBG pH (7.31-7.41) VBG pCO2 (41-51) mmHg VBG pO2 mmHg VBG HCO3 (23-28) mmol/L VBG Total CO2 (24-29) mmol/L VBG O2 Saturation % VBG Base Excess (-2-3) mmol/L Sodium (136-145) mmol/L Potassium (3.5-5.1) mmol/L Chloride (98-107) mmol/L Carbon Dioxide (21.0-32.0) mmol/L Anion Gap (3-11) mmol/L BUN (7-18) mg/dL Creatinine (0.55-1.02) mg/dL Estimated GFR/1.73 m2 (mL/min/1.73m2) Glucose (74-106) mg/dL Calcium (8.5-10.1) mg/dL Magnesium (1.8-2.4) mg/dL Total Bilirubin (0.2-1.0) mg/dL AST (15-37) U/L ALT (14-59) U/L Alkaline Phosphatase (46-116) U/L Troponin I (<0.06) ng/mL NT-Pro-B Natriuret Pep (<300) pg/mL Total Protein (6.4-8.2) g/dL Albumin (3.4-5.0) g/dL TSH (0.36-3.74) uIU/mL Free T4 (0.76-1.46) ng/dL Urine Color (Yellow) Urine Clarity (Clear) Urine pH (5-8) Ur Specific [place] (1.005-1.025) Urine Protein (Negative) mg/dL Urine Ketones (Negative) mg/dL Urine Blood (Negative) Urine Nitrite (Negative) Urine Bilirubin (Negative) Urine Urobilinogen (Up TO 0.2) EU/dL Ur Leukocyte Esterase (Negative) Urine RBC (0-2) HPF Urine WBC (0-5) HPF Ur Epithelial Cells (Negative) HPF Urine Crystals (Negative) HPF Urine Bacteria (Negative) HPF Urine Casts (Negative) LPF Urine Mucus (Negative) Urine Other (Negative) Ur Culture Indicated? Urine Glucose (Negative) mg/dL Rheumatoid Factor (<12.0) IU/mL ANCA Immunofluorescen (Negative) ANCA Titer ANCA Pattern COVID-19 Source SARS-CoV-2 (PCR) (Negative) Urine Legionella Ag (Negative) Negative Ur Strep pneumoniae Ag (Negative) Negative Assessment and Plan Assessment and plan (1) Abnormal chest CT: Status: Acute (2) Obstructive sleep apnea: Status: Chronic (3) Hematuria: Status: Acute Qualifiers: Hematuria type: unspecified type Qualified Code(s): R31.9 - Hematuria, unspecified (4) Asthma: Status: Acute Assessment and plan: This is a 45-year-old woman with past medical history of migraines, IHSAN (not on CPAP) and asthma (previously well controlled) who presents in acute hypoxic respiratory failure requiring ICU admission for high flow nasal cannula. I initially had concerns for a vasculitic process given her CT chest findings as well as her hematuria. Her SOFIE and ANCA returned negative however her RF returned positive. I was unfamiliar with associations between rheumatoid arthritis and hematuria however upon my research I have found that there is an association in rheumatoid arthritis with mesangial glomerulonephritis as well as obstructive uropathy. Although the diagnosis of rheumatoid arthritis is yet to be confirmed it may be worth obtaining renal imaging in order to rule out obstruction. We will have to confirm the diagnosis of rheumatoid arthritis with an anti-CCP level. I will follow up with her in my clinic within a couple weeks however she will likely need rheumatology referral to [facility], which I will do during her outpatient encounter. Although her asthma was previously well controlled if this does channel turner to be rheumatoid arthritis the added inflamm ation could be worsening her asthma acutely. Abnormal Chest, concern for ILD - recommend continuing prednisone 40 for a total of 7 days, followed by 30mg for 5 days, followed by 20mg until she sees me in clinic - recommend Bactrim ppx - recommend a PPI on discharge given steroid - would complete CAP antibiotic course IHSAN not on CPAP - further management as outpatient Hematuria - recommend renal ultrasound to rule out obstructive uropathy - I will re-evaluate her hematuria when I see her as an outpatient and consider nephrology consultation from [facility] at that time Asthma Exacerbation - steroids as above - would recommend discharging her on Symbicort 160-4.5 mcg, 2 puffs twice daily, mouth rinsing after use. - would not continue her home Flovent as ICS monotherapy is not currently re commended for the treatment of asthma. Qualifiers: Asthma severity: mild Asthma persistence: persistent Asthma complication type: with acute exacerbation Qualified Code(s): J45.31 - Mild persistent asthma with (acute) exacerbation
[2021-03-06 08:57] LABS: IgA 337 mg/dL (85-499); IgG 1288 mg/dL (610-1,616); IgM 219 mg/dL (35-242)
[2021-03-06] MEDS: cefTRIAXone 1 GM/50 ML BAG IVPB (09:26)
--- NOTE | 2021-03-06 09:51 | DSE_ITS ---
Date of service: 03/06/21 Time of Service: 09:51 DS: Diagnosis Discharge Diagnosis (1) Abnormal chest CT: Status: Acute (2) Obstructive sleep apnea: Status: Chronic (3) Hematuria: Status: Acute (4) Asthma: Status: Acute Discharge Plan Disposition Patient Disposition: HOME Condition: Stable Discharge Details Reason For Visit: Pneumonitis Admit Date/Time: 03/03/21 14:17 Admit Provider: Chava Jackson Attending Provider: Chava Jackson Primary Care Provider: Lissette Shetty V Hospital Course Hospital Course: This is a 45 yo female with a history of asthma, obstructive sleep apnea, migraine headaches who presented to the ED with worsening shortness of breath worsening over the past week. Her symptoms were initially head congestion, then chest congestion and cough. She was unable to see her PCP on the day of admission and was directed to Urgent Care. She received 3 gqmr-[id number] nebulized albuterol updrafts. Her O2 saturations there were reported to be in the mid 80's on RA after the treatments. EMS transported the patient here to [facility] ED. She was administered solumedrol 125mg IV by EMS, as well as a nebulized Duoneb and magnesium. She endorsed a fever of 102 F recently. No purulent sputum. Her work up in the ED showed a WBC count that was normal. Cr of 1.1. COVID was negative. CTA chest was negative for pulmonary embolism. Sagger Maker reading was bilateral upper lobe predominant ground glass infiltrates. Thickened airways throughout. Significant mosaicism. Infectious vs inflammatory. she was requiring supplemental oxygen via hi flow system to maintain sats in the 90's. She was given continuous nebulized albuterol, which caused tremors. This was changed to xopenex with improvement in the tremors. she was started on ceftriaxone and doxycycline and pulmonology was consulted. orders were placed for SOFIE, ANCA, Ig subgroups, Urine legionella and strep pneumo urine antigens obtained and still pending at discharge. she was downstepped to oral steroids and improved with treatment. she was weaned off oxygen and was oxygenating well on room air. She was found to have hematuria, she will be scheduled for outpatient renal ultrasound as we were unable to obtain today prior to her discharge. Dr Diehl will re-evaluate her hematuria when seen as an outpatient and will consider nephrology consultation from [facility] if needed. recommendations for Abnormal Chest, concern for ILD - instructed to continue prednisone 40 for a total of 7 days, followed by 30mg for 5 days, followed by 20mg until she is seen in pulmonary clinic - recommend Bactrim ppx, will trial while on steroids as allergy listed hives, she was instructed to stop and notify pulmonary if so. - placed on pantoprazole on discharge given steroid - will complete CAP antibiotic course, downstepped to oral doxy and cefpodoxime today day 4/5 at discharge. she will need f/u outpatient regarding her IHSAN not on CPAP. Regarding asthma Exacerbation - taper steroids as above - discharged on Symbicort 160-4.5 mcg, 2 puffs twice daily, mouth rinsing after use. - discontinued her home Flovent as ICS monotherapy is not currently recommended for the treatment of asthma. discharge discussed with Dr Jackson. Home Meds and New Rx's Prescriptions: New prednisone 20 mg Tablet 40 mg PO DAILY Qty: 60 RF: 0 doxycycline hyclate 100 mg capsule 100 mg PO BID Qty: 3 RF: 0 cefpodoxime 200 mg tablet 200 mg PO BID Qty: 3 RF: 0 pantoprazole 40 mg tablet,delayed release (DR/EC) 40 mg PO DAILY Qty: 30 RF: 0 budesonide-formoterol [Symbicort] 160-4.5 mcg/actuation HFA aerosol inhaler 2 puff inhalation BID Qty: 10.2 RF: 0 sulfamethoxazole-trimethoprim 800-160 mg tablet 1 tab PO DAILY Qty: 30 RF: 0 Continued gabapentin 300 mg capsule 300 mg PO QHS RF: 0 fluoxetine 10 mg capsule 10 mg PO DAILY RF: 0 albuterol sulfate [ProAir HFA] 8.5 GM HFA aerosol inhaler 2 puff Inhalation Q4H PRN RF: 0 levothyroxine 75 MCG tablet 75 mcg PO DAILY RF: 0 pantoprazole 40 mg tablet,delayed release (DR/EC) 40 mg PO BID RF: 0 topiramate 200 mg tablet 200 mg PO DAILY RF: 0 Latuda 80 mg tablet 80 mg PO QPM RF: 0 lisinopril 20 mg tablet 20 mg PO DAILY RF: 0 divalproex 500 mg tablet,delayed release (DR/EC) 1,500 mg PO DAILY RF: 0 Discontinued Flovent HFA 220 mcg/actuation HFA aerosol inhaler 1 inh INHALATION BID RF: 0 Discharge Instructions Instructions: Community Acquired Pneumonia (DC), Kidney Ultrasound (DC) Additional Instructions: - Continue prednisone 40 for a total of 7 days, followed by 30mg for 5 days, followed by 20mg until you see DR Diehl in the office - Start Bactrim DS daily on Monday March 08, 2021, you have bactrim listed as an allergy. Your reaction was hives. You should not experience hives while on steroids. Please monitor and report allergy symptoms, stop it and discuss with Dr Diehl. - take protonix while on steroid - You need need to complete 3 more doses of doxycycline and cefpodoxime to complete a 5 day course to treat your pneumonia. - March 17 at 1:30 pm you are scheduled for a renal ultrasound with radiology here at [facility] as outpatient to follow up on your hematuria (blood in urine). - rinse your mouth after each use of symbicort to prevent thrush. report symptoms of thrush to your provider. This includes sore throat, white coat on tongue, oral lesions. Stand Alone Forms: Nursing Discharge Form Referrals: [facility] Diagnostic Imaging [Other] - 03/17/21 1:30 pm (Prior to arriving for Renal Ultrasound do not drink carbinated beverages. Also arrive to appointment with a full bladder. Please call [facility] Diagnostic Imaging with any further questions. ) Pastora Deihl MD [ [facility] STAFF PHYSICIAN] - 03/20/21 9:20 am Zoe Scruggs [NURSE PRACTITIONER] - 03/18/21 9:15 am Activity:: Activity as Tolerated Equipment/Supplies:: No Equipment Needed Diet:: As Tolerated Discharge Orders Discharge Orders: Discharge Order (Routine); Ordered 03/06/21 Ordered By: Natali Patterson Other Ambulatory Orders: US renal (Routine) Location: None Selected Ordered By: Natali Patterson DS: Summary Time Spent with Patient providing and/or coordinating discharge services: Greater than 30 minutes Status at Discharge Functional status at discharge: independent ambulation Overall status at discharge: patient is progressing back to baseline Mental Status: mental status grossly normal Speech and Movement: speech and movement normal Mood: congruent mood Affect: normal affect Exam Const General: cooperative and no acute distress Nutritional Appearance: obese Orientation: alert and oriented x3 Eyes Sclera: sclerae normal Pupils: PERRL Neck Neck: normal visual inspection and no JVD Resp Effort & Inspection: normal respiratory effort Auscultation: diminished lung sounds and wheezes (faint wheeze on right) Cardio Rhythm: regular rhythm GI Palpation: soft and nontender Skin General skin exam: no rashes or lesions noted Extrem General: no pedal edema and no calf tenderness Psych Appearance: grossly normal Mental Status: mental status grossly normal Speech and Movement: speech and movement normal Mood: congruent mood Affect: normal affect DS: Data Vitals/I&O Vitals and I&O: Vital Signs Temperature 36.3 C L 03/06/21 03:54 Temperature Source Tympanic 03/06/21 03:54 Pulse 85 03/06/21 03:54 Pulse Rhythm Regular 03/06/21 09:01 Pulse 88 03/04/21 20:01 Respiratory Rate 17 03/06/21 03:54 Respiratory Effort Non-Labored 03/05/21 23:35 Respiratory Depth Normal 03/05/21 23:35 Respiratory Pattern Normal 03/05/21 23:35 Blood Pressure 113/72 03/06/21 03:54 Blood Pressure Mean 90 03/04/21 20:11 Blood Pressure Position Sitting 03/04/21 20:11 Pulse Oximetry 94 03/06/21 09:01 Oxygen Delivery Method Room Air 03/06/21 09:01 Oxygen Flow Rate 0 03/06/21 09:01 Fraction of Inspired Oxygen (FIO2) 21 03/04/21 20:17 Pain Level 0 03/06/21 09:08 Intake & Output 03/05/21 03/05/21 03/06/21 11:59 23:59 11:59 Intake Total 650 / 1270 620 / 1270 280 / 280 Output Total 400 / 750 350 / 750 Balance 250 / 520 270 / 520 280 / 280 Weight 93.44 kg Intake: IV 150 / 290 140 / 290 100 / 100 Oral 500 / 980 480 / 980 180 / 180 Output: Urine 400 / 400 Stool 350 / 350 Other: Urine Color Dark Susy Dark Susy Urine Appearance Clear Clear Urine Odor None None Comment urine mix with blood, pt has menstruation void x 2 Stool Characteristics Formed Voiding Methods Toilet Toilet Data Completed and Pending Labs on day of discharge: Labs from last 24 hours 03/06/21 03/04/21 03/04/21 08:30 11:55 06:05 Cyclic Citrull Peptide Pending ANCA Immunofluorescen Negative ANCA Titer Not Applicable ANCA Pattern Not Applicable Ur Strep pneumoniae Ag Negative PFSH Medical History (Updated 03/06/21 @ 09:21 by Pastora Diehl MD) Asthma Episodic when has chest infections/ uses rescue inhaler Barretts esophagus Bipolar disorder Depression (emotion) Rx'd / Past history of Essential tremor GERD (gastroesophageal reflux disease) Hypertension With OC use many years ago. Resolved Migraine Mild renal insufficiency Obstructive sleep apnea Surgical History L shoulder dislocation with arthroscopic surgery 2007 Meniscectomy L knee 2003 [place] Fundoplication 2009 Family History Other Diabetes Hyperlipidemia Personal history of malignant neoplasm Social History Smoking/Tobacco Use Status: Current every day Tobacco Type: cigarettes Smoking risk assessment performed?: Yes Alcohol Intake: never Drug use: Never Do you feel safe at home: Yes Do you feel safe in your relationship?: Yes
--- NOTE | 2021-03-06 11:34 | PDOC.CMDIS ---
- If Service Date Differs Date of service: 03/06/21 Time of Service: 11:34 LACE Index Scoring Tool - Questions: Length of Stay (in days): 3 Acuity (Admit via E.D.?): Yes E.D. Visits: 1 - Answers: Total Score: 7 Risk of Readmission: Low Risk Care Management Discharge Reason for Hospitalization: respiratory failure with hypoxia Discharge Plan: Julia will be discharged home with no new services. She will follow up with her PCP and plan of care and transport with her daughter. Patient/Family Education Needs: Review of discharge instructions, medications, activity, follow up plan, Ask Me Three
[2021-03-06] MEDS: DOXYCYCLINE 100 MG in Normal Saline 100 ML IVPB (12:00)
[2021-03-09 10:09] LABS: Cyclic Citrullinated Peptide <2.5 U/mL (<5.0)
== END 2021-03-06 14:56 | disposition home or self-care (01) | DRG 189 ==
LOC: ER 14:49 → ICU 15:16 → MS 03-04 21:35
PROVIDERS: Admitting Provider Family Medicine; Emergency Provider Emergency Medicine; PCP Family Medicine; Visit Provider Family Medicine
DX: J96.01 Acute respiratory failure with hypoxia (principal); J45.21 Mild intermittent asthma with (acute) exacerbation; K21.9 Gastro-esophageal reflux disease without esophagitis; I10 Essential (primary) hypertension; G47.33 Obstructive sleep apnea (adult) (pediatric); G43.909 Migraine, unspecified, not intractable, without status migrainosus; F31.9 Bipolar disorder, unspecified; G25.0 Essential tremor; K22.70 Barrett's esophagus without dysplasia; F17.210 Nicotine dependence, cigarettes, uncomplicated; R31.9 Hematuria, unspecified; R91.8 Other nonspecific abnormal finding of lung field
CPT/HCPCS: 36415; 71275; 80048; 80053; 82784; 82805; 85027; 86200; 86255; 87449; 87635; 93005; 94640; 94644; 99285; 81003; 81015; 82785; 82787; 83735; 83880; 84439; 84443; 84484; 85025; 86431; 87086; 87899; 93010; 99223; 99233; 99239; 99284; J0696; J1644; J3490; J7512; J7611; J7614; J7644

== ENCOUNTER → 2021-03-17 02:43 | Outpatient (CLI) | payer OTHER, SELFPAY ==
--- NOTE | 2021-03-17 | DI.US_ITS ---
Exam(s) US RENAL EXAM: US RENAL CLINICAL HISTORY: HEMATURIA TECHNIQUE: Ultrasound performed using standard protocol. COMPARISON: US RENAL ULTRASOUND(P) from 12/16/2017 FINDINGS: The kidneys are normal in size and shape. Right kidney measures 10.2 x 4.2 x 6.1 cm and left kidney measures 11.5 x 4.2 x 4.9 cm. There is no evidence of hydronephrosis, nephrolithiasis, or renal mass. Urinary bladder is unremarkable in appearance with pre and postvoid urinary bladder volume measuremen ts 117 cc and 44 cc respectively. The ureteral jets were nonvisualized. IMPRESSION: Negative renal ultrasound. Considering the history of hematuria, additional evaluation with CT urog jabari or cystoscopy should be considered. DATA REPOSITORY:
== END ==
PROVIDERS: PCP Family Medicine; Visit Provider Nurse Practitioner Acute Care
DX: R31.9 Hematuria, unspecified (principal); J18.9 Pneumonia, unspecified organism
CPT/HCPCS: 76770

== ENCOUNTER → 2021-03-18 09:55 | Outpatient (CLI) | payer OTHER, SELFPAY ==
--- NOTE | 2021-03-18 10:19 | DI.RAD_ITS ---
Exam(s) XR CHEST 2V PA LATERAL EXAM: XR CHEST 2V PA LATERAL CLINICAL HISTORY: PNEUMONIA J18.9 BILAT LOBE PNEUMONIA INPT 03/03-03/06, PLEASE COMPARE TO. TECHNIQUE: 2D digital imaging was performed. COMPARISON: CR CHEST 2 VIEWS PA,LAT from 07/07/2015 FINDINGS: Heart size is normal. The mediastinum is not widened. Right lung is clear. There are mild increased markings in the lingular segment of the left lung. No pleural effusions. IMPRESSION: There is mild infiltrate in the lingular segment of the left lung. No pleural effusions. DATA REPOSITORY: RADIATION DOSE DELIVERED:
== END ==
PROVIDERS: PCP Family Medicine; Visit Provider Nurse Practitioner Family
DX: J18.9 Pneumonia, unspecified organism (principal); R91.8 Other nonspecific abnormal finding of lung field
CPT/HCPCS: 71046

== ENCOUNTER 2021-04-01 02:39 | Outpatient (CLI) | payer OTHER, SELFPAY ==
[2021-04-01 15:52] LABS: ALT 23 U/L (14-59); AST 9 U/L (15-37); Albumin 3.4 g/dL (3.4-5.0); Alkaline Phosphatase 40 U/L (46-116); Anion Gap 12.2 mmol/L (3-11); BUN 15 mg/dL (7-18); Bilirubin, Total 0.3 mg/dL (0.2-1.0); CO2 20.8 mmol/L (21.0-32.0); CREATININE 1.4 mg/dL (0.55-1.02); Calcium 8.8 mg/dL (8.5-10.1); Calculated LDL 129 mg/dL (<100); Chloride 97 mmol/L (98-107); Cholesterol 203 mg/dL (<200); Estimated GFR 40.85 (mL/min/1.73m2); Glucose 116 mg/dL (74-106); HDL Cholesterol 59 mg/dL (40-60); Potassium 5.1 mmol/L (3.5-5.1); Sodium 130 mmol/L (136-145); TSH 0.65 uIU/mL (0.36-3.74); Total Protein 6.5 g/dL (6.4-8.2); Triglyceride 75 mg/dL (<150)
[2021-04-03 08:44] LABS: IgE 1534 IU/mL (<158)
[2021-04-03 12:43] LABS: Aspergillus Fumigatus IgE <0.35 kU/L
== END 2021-04-01 02:40 | disposition home or self-care (01) ==
LOC: LBO 02:39
PROVIDERS: Physician Assistant Medical; PCP Family Medicine; Visit Provider Student in an Organized Health Care Education/Training Program
DX: B44.81 Allergic bronchopulmonary aspergillosis (principal); E03.9 Hypothyroidism, unspecified; I10 Essential (primary) hypertension; R79.89 Other specified abnormal findings of blood chemistry; F31.81 Bipolar II disorder; Z51.81 Encounter for therapeutic drug level monitoring; J45.909 Unspecified asthma, uncomplicated
CPT/HCPCS: 36415; 80053; 80061; 80164; 82785; 84443; 86003; 86606

== ENCOUNTER 2021-04-27 04:43 | Outpatient (CLI) | payer OTHER, SELFPAY ==
[2021-04-27] MEDS: Inhaler, Assist Device 1 EACH MC (14:17)
[2021-04-27] MEDS: Albuterol HFA 18 GM 200 PUFF INH IH (14:17)
--- NOTE | 2021-04-27 15:19 | W.PFT ---
Date of service: 04/27/21 Time of Service: 13:08 Pulmonary Function Test Result Requesting Provider Shanita Indications: Allergic Bronchopulmonary Aspergillosis Interpretation Spirometry: There is no airflow limitation, however there is a restrictive pattern to her spirometry. There is no significant bronchodilator effect. Lung Volumes: Lung volumes are normal Diffusion Capacity: The diffusion is normal Airway Pressure: Airways resistance is normal Impression Normal pulmonary function testing with a restrictive pattern to the spirometry which is likely pseudorestriction from obesity in the setting of normal lung volumes. Clinical Correlation therefore is recommended.
== END 2021-04-27 04:44 | disposition home or self-care (01) ==
LOC: RT 04:43
PROVIDERS: PCP Family Medicine; Visit Provider Student in an Organized Health Care Education/Training Program
DX: B44.81 Allergic bronchopulmonary aspergillosis (principal); J98.4 Other disorders of lung; E66.9 Obesity, unspecified
CPT/HCPCS: 94060; 94726; 94729

== ENCOUNTER 2021-04-29 03:14 | Outpatient (CLI) | payer OTHER, SELFPAY ==
[2021-05-01 11:19] LABS: IgE 1341 IU/mL (<158)
== END 2021-04-29 03:15 | disposition home or self-care (01) ==
LOC: LBO 03:14
PROVIDERS: PCP Family Medicine; Visit Provider Student in an Organized Health Care Education/Training Program
DX: B44.81 Allergic bronchopulmonary aspergillosis (principal)
CPT/HCPCS: 82785

== ENCOUNTER → 2021-05-08 04:00 | Outpatient (CLI) | payer OTHER, SELFPAY ==
--- NOTE | 2021-05-08 13:25 | DI.CT_ITS ---
Exam(s) CT CHEST WO EXAM: CT CHEST WO CLINICAL HISTORY: f/u infiltrates from last ct, allergic bronchopulmonary aspergillosis,. TECHNIQUE: Imaging protocol: Axial computed tomography images were obtained and coronal and sagittal reformatted images were created and reviewed. COMPARISON: CT CT CHEST PE CTA from 03/03/[address] CHEST PE CTA from 03/03/2021 FINDINGS: Tracheobronchial tree: Patent where visualized. Pulmonary parenchyma: There has been near complete resolution of the bilateral ground-glass opacities since 03/03/2021. There are few scattered small ground-glass opacities predominantly in the upper lo be. No new infiltrates are seen. There are stable pulmonary nodules. The largest nodule measures 4 mm and is located in the left lower lobe. Mediastinum and Nano: No dominant adenopathy or fluid collection. Small hiatal hernia. Pleura: No effusion or pneumothorax. Heart: The heart is not dilated. No coronary artery calcifications are seen. No pericardial effusion. Aorta: Thoracic aorta non-dilated. Upper abdomen: Unremarkable. Lymph nodes: Within normal limits. Soft tissues: Unremarkable. Bones:Within normal limits for the patient's age. IMPRESSION: 1. Near complete resolution of the pulmonary infiltrates since 03/03/2021. 2. Stable pulmonary nodules. In high risk patients (history of smoking or other risk factors), a foll ow-up examination in 12 months is recommended. RADIATION DOSE DELIVERED: 685.46mGy.cm Total DLP 685.46mGy.cm Total DLP DATA REPOSITORY: All CT scans at this facility are submitted to the National Radiology Data Registry (NRDR) Dose Index Registry (DIR) with the [employer] (ACR). RADIATION OPTIMIZATION: All CT scans at this facility use at least one of these dose optimization te chniques: automated exposure control; mA and/or kV adjustment per patient size (includes targeted exa ms where dose is matched to clinical indication); or iterative reconstruction.
== END ==
PROVIDERS: PCP Family Medicine; Visit Provider Student in an Organized Health Care Education/Training Program
DX: B44.81 Allergic bronchopulmonary aspergillosis (principal); R91.1 Solitary pulmonary nodule
CPT/HCPCS: 71250

== ENCOUNTER 2021-07-21 19:17 | Outpatient (REF) | payer OTHER, SELFPAY ==
[2021-07-24 09:26] LABS: IgE 1639 IU/mL (<158)
== END 2021-07-21 19:18 | disposition home or self-care (01) ==
LOC: LBN 19:17
PROVIDERS: PCP Family Medicine; Visit Provider Student in an Organized Health Care Education/Training Program
DX: B44.81 Allergic bronchopulmonary aspergillosis (principal)
CPT/HCPCS: 82785

== ENCOUNTER 2021-12-11 13:09 | Outpatient (REF) | payer OTHER, SELFPAY ==
[2021-12-11 15:01] LABS: Absolute Basophil Count 0.06 10^3/uL (0.0-0.2); Absolute Eosinophil Count 0.11 10^3/uL (0.0-0.7); Absolute Lymphocyte Count 2.24 10^3/uL (1.2-3.4); Absolute Monocyte Count 0.88 10^3/uL (0.1-0.8); Absolute Neutrophil Count 3.65 10^3/uL (1.2-6.7); Basophils % 0.9; ESR 4 mm/hr (0-20); Eosinophils % 1.6; HCT 42.5 % (36.0-46.0); HGB 13.5 g/dL (11.2-15.7); Immature Grans % 1.4; Lymphocytes % 31.8; MCH 33.3 pg (27.0-33.0); MCHC 31.8 % (32.0-36.0); MCV 105 fL (80-95); MPV 11.3 fL (8.0-11.0); Monocytes % 12.5; Neutrophils % 51.8; Platelet Count 205 10^3/uL (130-400); RBC 4.05 10^6/uL (3.93-5.22); RDW 12.5 % (11.7-14.6); RDW-SD 48.5 fL; WBC 7.04 10^3/uL (4.4-10.8)
[2021-12-11 15:25] LABS: ALT 37 U/L (14-59); AST 24 U/L (15-37); Albumin 3.7 g/dL (3.4-5.0); Alkaline Phosphatase 57 U/L (46-116); Anion Gap 7.7 mmol/L (3-11); BUN 17 mg/dL (7-18); Bilirubin, Total 0.3 mg/dL (0.2-1.0); CO2 26.3 mmol/L (21.0-32.0); CREATININE 1.1 mg/dL (0.55-1.02); Calcium 9.1 mg/dL (8.5-10.1); Chloride 106 mmol/L (98-107); Estimated GFR 53.71 (mL/min/1.73m2); Glucose 90 mg/dL (74-106); Potassium 4.6 mmol/L (3.5-5.1); Sodium 140 mmol/L (136-145); TSH 3.11 uIU/mL (0.36-3.74); Total Protein 6.9 g/dL (6.4-8.2)
== END 2021-12-11 13:10 | disposition home or self-care (01) ==
LOC: NCHCN 13:09
PROVIDERS: PCP Family Medicine; Visit Provider Physician Assistant Medical
DX: R19.7 Diarrhea, unspecified (principal)
CPT/HCPCS: 80053; 85652; 84443; 85025

== ENCOUNTER 2021-12-15 19:03 | Outpatient (REF) | payer MEDICARE, SELFPAY ==
[2021-12-16 10:51] LABS: Campylobacter PCR Negative (Negative); Salmonella PCR Negative (Negative); Shiga Toxin PCR Negative (Negative); Shigella/Enteroinvasive Ecoli Negative (Negative)
[2021-12-16 14:01] LABS: Helicobacter pylori Ag, Feces Negative (Negative)
== END 2021-12-15 19:04 | disposition home or self-care (01) ==
LOC: NCHCN 19:03
PROVIDERS: PCP Family Medicine; Visit Provider Physician Assistant Medical
DX: R19.7 Diarrhea, unspecified (principal)
CPT/HCPCS: 87329; 87338; 87505; 83630

== ENCOUNTER 2021-12-30 01:35 | Outpatient (CLI) | payer MEDICARE, SELFPAY ==
--- NOTE | 2021-12-30 13:59 | DI.US_ITS ---
APPROVED REPORT EXAM: Comprehensive 2D, Doppler, and color-flow Echocardiogram Patient Location: Out-Patient Shop Mechanic Helper: Stephanie White RDCS (AE) Indications: Dyspnea,Respiratory failure with hypoxia Other Information Study Quality: Adequate Conclusion Normal left ventricular wall thickness and chamber size. Estimated ejection fraction is 55 to 60%. Wall motion is normal Normal right ventricular size and systolic function Both atria are normal in size There is no structural or hemodynamically significant valvular disease Estimated right ventricular systolic pressure is 34 mmHg Wall motion Left Ventricle The left ventricle is normal size. The left ventricular systolic function is normal. The left ventric ular ejection fraction is within the normal range. There is normal left ventricular wall thickness. T here is normal LV segmental wall motion. There is no ventricular septal defect visualized. LVEF is 57 %. Right Ventricle The right ventricle is normal size. The right ventricular systolic function is normal. The RVSP is 33 .7mmHg. Atria The left atrium size is normal. The right atrium size is normal. The interatrial septum is intact wit h no evidence for an atrial septal defect. Aortic Valve The aortic valve is normal in structure. Aortic valve is trileaflet. There is no aortic valvular sten osis. No aortic regurgitation is present. Mitral Valve The mitral valve is normal in structure. No evidence of mitral valve stenosis. Trace mitral regurgita tion. Tricuspid Valve The tricuspid valve is normal in structure. There is no tricuspid valve stenosis. Mild tricuspid regu rgitation. Pulmonic Valve The pulmonary valve is normal in structure. There is no pulmonic valvular stenosis. There is no pulmo lauren valvular regurgitation. Great Vessels The aortic root is normal in size. The ascending aorta is normal in size. Aortic arch is normal in ca liber. IVC is normal in size and collapses >50% with inspiration. Pericardium There is no pericardial effusion. 2D Dimensions IVSD d PLAX 0.91 cm F: 0.6-1.0 LV Vol A2C d MOD 58.6 mL LVPW d PLAX 0.91 cm F: 0.6 - 1.0 LV Vol A4C d MOD 102.8 mL LVID d PLAX 4.86 cm F: 3.8 - 5.2 LA vol/ BSA A2C s A-L 19.6 mL/m2 LVDs 3.30 cm F: 2.2 - 3.5 LA vol/ BSA A4C s A-L 34.6 mL/m2 Ao Root d 2.64 cm F: 2.7 - 3.3 LA Vol/ BSA Biplane s A-L 28.4 mL/m2 RA Area A4C 15.66 cm2 LA Area A4C s MOD 22.30 cm2 RA Vol/ BSA A4C s A-L 19.7 mL/m2 LA Area A2C s MOD 15.42 cm2 Ao Asc Diam d 3.01 cm F: 2.3 - 3.1 LV EF A4C MOD 56.3 % LV EF Teichholz 59.9 % LV EF A2C MOD 58.8 % LVEF (Yee's) 56.67 % F: 54 - 74 LV EF Biplane MOD 56.7 % LV Volume 59.16 mL F: 46 - 106 SV 45.09 mL LV Volume Index 28.85 mL/m2 F: 29 - 61 SV Index 21.97 mL/m2 LV Vol Biplane MOD 79.6 mL FS 31.95 % M-Mode TAPSE 3.27 cm (M/F) >1.7 LV Diastology MV E' medial 0.147 (>0.07 m/s) E/A Ratio 0.9 LV E/e MED 6.40 (<14) MV E Vmax 0.94 (0.4-1.3 m/s) MV E' lateral 0.133 (>0.1 m/s) MV A Vmax 1.10 (0.4-1.3 m/s) LV E/e LAT 7.05 (<14) MV E/A Ratio 0.82 MV E/E' medial 6.41 MV E/E' lateral 7.08 Aortic Valve LVOT Area 2.86 cm2 AoV Area Vmax 2.46 cm2 LVOT Vmax 1.62 m/s AoV Area/ BSA (Vmax) 1.20 cm2/m2 LVOT Mean Joshua. 0.97 m/s ESTEPHANIE Mean Joshua. 2.13 cm2 LVOT Peak Grad 10.5 mmHg ESTEPHANIE Mean Joshua. Index 1.04 cm2/m2 LVOT Mean Grad 4.7 mmHg LVOT VTI 0.338 m LVOT Diam s 1.90 cm AoV Vmax 1.89 m/s Velocity Ratio 0.85 AoV Mean Joshua. 1.31 m/s AoV Peak Grad 14.2 mmHg LVOT SV 96.73 mL AoV Mean Grad 7.7 mmHg AoV VTI 0.365 m AoV Area VTI 2.65 cm2 AoV Area/ BSA (VTI) 1.29 cm/m2 Mitral Valve MV DT 268 (160-240 msec) MV PHT 78 msec MV Area PHT 2.83 cm2 MV VTI 0.356 m MV Area VTI 2.71 (4.0-6.0 cm2) Pulmonary Valve PV Vmax 1.07 (0.5-1.5 m/s) RVOT Peak Gr. 2.32 mmHg PV Peak Grad 4.5 mmHg RVOT Mean Gr. 1.25 mmHg PV Mean Grad 2.9 mmHg RVOT VTI 0.169 m PV VTI 0.257 m RVOT Vmax 0.76 m/s Tricuspid Valve TR Peak Grad 30.6 mmHg TR Vmax 2.77 m/s RA Pressure 3.00 mmHg RVSP (TR) 33.7 mmHg
== END 2021-12-30 01:55 ==
PROVIDERS: PCP Family Medicine; Visit Provider Student in an Organized Health Care Education/Training Program
DX: J96.01 Acute respiratory failure with hypoxia (principal)
CPT/HCPCS: 93306

== ENCOUNTER 2022-02-08 17:40 | Outpatient (REF) | payer MEDICARE, SELFPAY ==
[2022-02-10 09:36] LABS: IgE 972 IU/mL (<158)
== END 2022-02-08 17:41 | disposition home or self-care (01) ==
LOC: LBN 17:40
PROVIDERS: PCP Family Medicine; Visit Provider Student in an Organized Health Care Education/Training Program
DX: B44.81 Allergic bronchopulmonary aspergillosis (principal)
CPT/HCPCS: 82785

== ENCOUNTER → 2022-03-18 15:16 | Outpatient (BNVA) | payer MEDICARE, SELFPAY | PROVIDERS: PCP Family Medicine; Referring Provider Family Medicine; Visit Provider Physical Therapy Assistant | DX: Z12.11 Encounter for screening for malignant neoplasm of colon (principal) ==

== ENCOUNTER 2022-04-06 02:54 | Outpatient (CLI) | payer MEDICARE, SELFPAY ==
[2022-04-06 12:23] LABS: Source Nasal/Nares
[2022-04-06 15:41] LABS: COVID-19 PCR Negative (Negative)
== END 2022-04-06 02:55 | disposition home or self-care (01) ==
PROVIDERS: PCP Family Medicine; Visit Provider Surgery
DX: Z01.818 Encounter for other preprocedural examination (principal); Z20.822 Contact with and (suspected) exposure to COVID-19
CPT/HCPCS: 87635

== ENCOUNTER 2022-04-08 08:53 | Day surgery (SDC) | payer MEDICARE, SELFPAY ==
--- NOTE | 2022-04-08 06:12 | PDOC.DSDIS_ITS ---
Discharge Plan Disposition Patient Disposition: HOME Condition: Good Discharge Details Reason For Visit: EGD and Colonoscopy Attending Provider: Ramu Foster Primary Care Provider: Lissette Shetty V Home Meds and New Rx's Prescriptions: Continued gabapentin 300 mg capsule 300 mg PO QHS (DME) Oxygen Tank See Rx Instructions .ROUTE .MEDSUPPLY Qty: 1 Rx Instructions: As directed, Pt states she on 2L at night. fluoxetine 10 mg capsule 10 mg PO HS albuterol sulfate [ProAir HFA] 8.5 GM HFA aerosol inhaler 2 puff Inhalation Q4H PRN levothyroxine 75 MCG tablet 75 mcg PO DAILY AM Dupixent Syringe 200 mg/1.14 mL syringe 200 mg subcut Q2W Qty: 2.28 12RF Rx Instructions: Inject 400mg under the skin for initial dose, then inject 200mg under the skin every 2 weeks. albuterol sulfate 2.5 mg /3 mL (0.083 %) solution for nebulization 2.5 mg inhalation Q4H PRN fluticasone propionate [Flovent HFA] 220 mcg/actuation HFA aerosol inhaler 1 puff inhalation BID montelukast 10 mg tablet See Rx Instructions .ROUTE .COMPLEX Qty: 30 0RF Dose Instruction: TAKE 1 TABLET BY MOUTH DAILY Rx Instructions: TAKE 1 TABLET BY MOUTH DAILY Spiriva Respimat 1.25 mcg/actuation mist See Rx Instructions .ROUTE .COMPLEX Qty: 4 0RF Dose Instruction: INHALE 2 PUFFS BY MOUTH DAILY Rx Instructions: INHALE 2 PUFFS BY MOUTH DAILY pantoprazole 40 mg tablet,delayed release (DR/EC) 40 mg PO BID Label Comments: TAKE 1 TABLET BY MOUTH TWICE DAILY topiramate 200 mg tablet 200 mg PO HS Label Comments: TAKE 1 TABLET BY MOUTH EVERY DAY Latuda 80 mg tablet 80 mg PO QPM Label Comments: TAKE 1 TABLET BY MOUTH AT NIGHT lisinopril 20 mg tablet 20 mg PO HS Label Comments: TAKE 1/2 TABLET BY MOUTH DAILY FOR 1 WEEK THEN INCREASE TO 1 TABLET DAILY divalproex 500 mg tablet,delayed release (DR/EC) 1,500 mg PO HS Label Comments: TAKE 3 TABLETS BY MOUTH DAILY budesonide-formoterol [Symbicort] 160-4.5 mcg/actuation HFA aerosol inhaler 2 puff inhalation BID Qty: 10.2 0RF Discontinued bisacodyl [Dulcolax (bisacodyl)] 5 mg tablet,delayed release (DR/EC) 5 mg PO ONCE Qty: 4 0RF Rx Instructions: Take according to provider's instructions for colonoscopy prep. polyethylene glycol 3350 17 gram/dose powder 17 g PO ONCE Qty: 238 0RF Rx Instructions: To be taken as directed by prescriber's office for colonoscopy prep. Discharge Instructions Instructions: Colonoscopy (DC), Upper Endoscopy (DC), Garcia Esophagus (DC) Additional Instructions: 1. If tolerated, consume a soft, low fiber diet for 1-2 days. [address] not drive, drink alcohol, operate machinery, make critical decisions, or do activities that require coordination or balance for 24 hours. 3. Because air was put into your colon during the procedure, expelling air from your rectum (passing gas or farting) is normal. 4. You may not have a bowel movement for 1-3 days because of the colonoscopy prep. This is normal. 5. You may experience a sore throat for 24 to 48 hours. You may use throat loze nges or gargle with warm salt water to relieve the discomfort. 6. Because air was put into your stomach during the procedure, you may experience some belching. 7. Go directly to the emergency room if you notice any of the following: Develop chills (warm to touch), or if you have a thermometer and your temperature is above 101 Difficulty breathing or difficultly swallowing Persistent vomiting Severe abdominal pain, other than gas cramps Severe chest pain Black, tarry stools Any bleeding ? exceeding one tablespoon 8. Call your physician if the site where your intravenous was started becomes red, swollen, painful, and warm to touch. 9. Your physician has reviewed your pre-procedure medications. Please continue to take those medications as previously ordered. You will be given specific information/education regarding any changes to your medications before leaving. Referrals: Lissette Shetty MD [Primary Care Provider] - Activity:: Activity as Tolerated Diet:: As Tolerated Discharge Orders Discharge Orders: Discharge Order (Routine); Ordered 04/08/22 Ordered By: Ramu Foster DS: Diagnosis Discharge Diagnosis (1) Barretts esophagus: Status: Acute Asessment and Plan: my office will contact you with results of the biopsies
--- NOTE | 2022-04-08 06:15 | W.PM.ENDDOP ---
Date of service: 04/08/22 Time of Service: 11:17 Endoscopy Report DATE OF PROCEDURE: 04/08/22 PRE-OP DIAGNOSIS: Screening colonoscopy for routine health maintenance and EGD for barretts POST-OP DIAGNOSIS: same PROCEDURE: EGD and colonoscopy SURGEON: Ramu Foster ANESTHESIA TYPE: General:No Airway ESTIMATED BLOOD LOSS: 30 PATHOLOGY: other (Four-quadrant esophageal biopsy for barretts) COMPLICATIONS: None DISPOSITION: same day INDICATIONS: Julia is a 46-year-old woman with longstanding gastric reflux disease, and previous diagnosis of Garcia's esophagus. Additionally, she now meets criteria for screening colonoscopy PREP: Miralax/Dulcolax PROCEDURE START TIME: 10:34 PROCEDURE END TIME: 11:02 COLONOSCOPY RETRACTION TIME: 18 FINDINGS: GEJ at 37 cm, 2.5 barretts PROCEDURE DESCRIPTION: After the initiation of monitored anesthetic care, and with the assistance of a bite block, I advanced a standard gastroscope through the mouth past the hypopharynx and into the esophagus.? Under the direct vision of the scope, I advanced down the esophagus into the stomach.? Once I entered the stomach, I performed a brief inspection, followed by retroflexion towards the gastric cardia.? This appeared normal.? After that, I gently advanced the scope around the incisura angularis and examined the pylorus.? This also appeared normal.? Next, I advanced the scope through the pylorus into the duodenum.? The mucosa was pink and healthy appearing.? There were no abnormalities.? I was able to visualize bile draining into the duodenum through the ampulla Vater. ?Next, I began retracting the endoscope.? Again, I returned to the stomach which was carefully examined once again.? I then gently desufflated some of the stomach, and withdrew the endoscope into the distal esophagus. The diaphragm hiatus appeared to be at 40 cm. The gastroesophageal junction was in this location. There was approximately 2 and half centimeters Garcia's esophagus. I performed four-quadrant biopsies of the distal esophagus at this location. Biopsies were performed with cold forceps. There was minimal bleeding. finally, I withdrew the scope along the length of the esophagus taking great care to examine the entirety of the mucosa.? I did not appreciate any other abnormalities.
[2022-04-08 09:11] VITALS: BP 113/79; PULSE 64; RESP 16; TEMP 36.5; O2SAT 96
[2022-04-08] MEDS: Lactated Ringers 1,000 ML 80 ML IV (09:32)
--- NOTE | 2022-04-08 09:32 | ANES.PREOP_ITS ---
General Info Date of Service Date Performed: 04/08/22 Height: 5 ft 3 in Weight: 99.7 kg Body Mass Index (BMI): 38.9 Surgical Procedure: Operation Date: 04/08/22 10:50 Proposed Procedure Side Surgeon p Colonoscopy/Gastroscopy Ramu Foster MD Meds Allergies and Home Medications Allergies Allergy/AdvReac Type Severity Reaction Status Date / Time Penicillins Allergy Intermediate Hives Verified 04/08/22 09:04 prochlorperazine edisylate Allergy Intermediate Dystonic Verified 04/08/22 09:04 [From Compazine] reaction Sulfa (Sulfonamide Allergy Intermediate Hives Verified 04/08/22 09:04 Antibiotics) azithromycin [From Zithromax] Allergy Mild Skin Rash Verified 04/08/22 09:04 bupropion HCl Allergy Mild Skin Rash Verified 04/08/22 09:04 [From Wellbutrin] egg Allergy Mild Skin Rash Verified 04/08/22 09:04 scopolamine Allergy Mild Skin Rash Verified 04/08/22 09:04 [From Transderm-Scop] shellfish derived Allergy Mild Vomiting Verified 04/08/22 09:04 Home Medication Medication Instructions Recorded albuterol sulfate 90 mcg/actuation 2 puff inhalation Q4H PRN 01/06/16 aerosol inhaler (ProAir HFA) levothyroxine 75 mcg tablet 75 mcg PO DAILY AM 01/04/18 fluoxetine 10 mg capsule 10 mg PO HS 12/14/18 gabapentin 300 mg capsule 300 mg PO QHS 02/26/19 divalproex 500 mg tablet,delayed 1,500 mg PO HS 03/03/21 release lisinopril 20 mg tablet 20 mg PO HS 03/03/21 lurasidone 80 mg tablet (Latuda) 80 mg PO QPM 03/03/21 pantoprazole 40 mg tablet,delayed 40 mg PO BID 03/03/21 release topiramate 200 mg tablet 200 mg PO HS 03/03/21 budesonide-formoterol HFA 160 2 puff inhalation BID #10.2 grams 03/06/21 mcg-4.5 mcg/actuation aerosol inhaler (Symbicort) dupilumab 200 mg/1.14 mL 200 mg (1.14 mL) subcut Q2W #2.28 06/09/21 subcutaneous syringe ([employer]) mL Oxygen #1 ea 07/21/21 albuterol sulfate 2.5 mg/3 mL 2.5 mg inhalation Q4H PRN 03/04/22 (0.083 %) solution for nebulization fluticasone propionate 220 1 puff inhalation BID 03/04/22 mcg/actuation HFA aerosol inhaler (Flovent HFA) montelukast 10 mg tablet See Rx Instructions .Route 03/30/22 .COMPLEX #30 tabs tiotropium bromide 1.25 See Rx Instructions .Route 04/05/22 mcg/actuation mist for inhalation .COMPLEX #4 grams (Spiriva Respimat) Current Visit Medications: Current Medications Generic Name Dose Route Start Last Admin Trade Name Freq PRN Reason Stop Dose Admin Ringer's Solution 1,000 mls @ 80 mls/hr 04/08/22 06:00 IV 05/07/22 23:59 INFUSION YARIEL IV Miscellaneous Supplies 1 each 04/08/22 06:00 Iv Access IV 05/07/22 23:59 DIRECTED YARIEL Sodium Chloride 0 ml 04/08/22 06:00 Normal Saline Flush 10 Ml Syr IV 05/07/22 23:59 PRN PRN Sodium Chloride 0 ml 04/08/22 06:00 Normal Saline 10 Ml Vial IJ 05/07/22 23:59 DIRECTED PRN Sterile Water 0 ml 04/08/22 06:00 Water,Injection,Sterile 10 Ml Vial IJ 05/07/22 23:59 DIRECTED PRN PFSH Active Problems Active Problems: Problem Status Onset Code New daily persistent headache 04/01/16 G44.52 Intractable migraine without aura and without status migrainosus 04/01/16 G43.019 Asthma 05/27/14 J45.909 Bipolar disorder F31.9 Hypoxia R09.02 Respiratory failure with hypoxia J96.91 Obstructive sleep apnea G47.33 Screening for colon cancer Z12.11 Barretts esophagus K22.70 Medical History Medical History Abnormal chest CT ABPA (allergic bronchopulmonary aspergillosis) Pt is on 2L of continuous O2 at night. Asthma Episodic when has chest infections/ uses rescue inhaler Barretts esophagus Depression (emotion) Rx'd / Past history of Discharge planning issues Essential tremor GERD (gastroesophageal reflux disease) Hematuria History of hypothyroidism Hx of migraine headaches Hypertension With OC use many years ago. Resolved Mild renal insufficiency Obstructive sleep apnea Surgical History Surgical History H/O tubal ligation History of tonsillectomy Hx of appendectomy L shoulder dislocation with arthroscopic surgery 2008 Meniscectomy L knee 2003 [place] Fundoplication 2009 S/P left knee arthroscopy Tobacco Smoking/Tobacco Use Status: Former Tobacco Use Alcohol Alcohol Intake: never Substance Use Substance use: Never Substance use type: does not use Vital Signs and Lab Results Vital Signs Most Recent Vital Signs in EMR: Most Recent Vital Signs Temp Pulse Resp BP Pulse Ox 36.5 C 64 16 113/79 96 04/08/22 09:11 04/08/22 09:11 04/08/22 09:11 04/08/22 09:11 04/08/22 09:11 Lab Results Blood Type / Crossmatch: No Data to Display Complete Blood Count: No Data to Display Complete Metabolic Panel: No Data to Display Liver Function Panel: No Data to Display Coagulation Panel: No Data to Display Cardiac Panel: No Data to Display Arterial Blood Gas: No Data to Display Venous Blood Gas: No Data to Display Pancreas Panel: No Data to Display Thyroid Panel: No Data to Display Infectious Disease: Coronavirus (COVID-19)(PCR) Negative (Negative) 04/06/22 08:00 Coronavirus 2019 Source Nasal/Nares 04/06/22 08:00 Blood Cultures: No Data to Display Toxicology Panel: No Data to Display Panel: No Data to Display Imaging and Studies Imaging and Studies Study information below may be from another EMR and interpreted by another provider. Please see original notes in EMR for more complete details. EKG Summary: Conclusion 2020 Sinus tachycardia...rate> 99 Probable left atrial enlargement...P >50mS, <-0.10mV V1 Conclusion Sinus tachycardia...rate> 99 Probable left atrial enlargement...P >50mS, <-0.10mV V1 Ate Anesthesia Assessment and Plan Anesthesia History Personal History: No History of Anesthesia Complications Family History: No Family History of Anesthesia Complications Exercise Tolerance Exercise Tolerance: Metabolic Equivalents>4 Pertinent Negatives Pertinent Negatives: No Symptoms of GERD Cardiac & Pulmonary Exam Cardiac Exam: Normal S1/S2 Heart Sounds Pulmonary Exam: Clear Bilateral Breath Sounds Implantable Cardiac Device Does patient have a Pacemaker or an ICD?: No Airway Exam Known Difficult Airway: No Mallampati Class: 2 Mouth Opening: Normal (> 3cm) Thyromental Distance: Greater than 3 cm Neck Range of Motion: Full ROM Neck Circumference: Normal Teeth Condition: Normal Dentition ASA Classification ASA Score: ASA 2 Emergency Case?: No NPO Status NPO Status: NPO Clears >2 hours, Solids >8 hours Status Status: Not Relevant due to Medical History Anesthesia Plan Resuscitation Status: Full Code Anesthesia Technique: General Anesthesia Airway Planned: Natural Airway Monitors Used: Standard Monitors
[2022-04-08 10:12] VITALS: BMI 38.9
--- NOTE | 2022-04-08 10:40 | ESO_PTH ---
PATIENT: Julia Foster LOC: [facility] U#:[id number] AGE/SX: 46/F ROOM: RE04/08/[address]: Ramu Foster MD : 1975 BED: DIS: 04/08/2022 SPEC #: [id number] RECD: 04/08/22 13:01 STATUS: RENE RE #: [id number] CODEY: 04/08/22 10:[address]: Ramu Foster DEPT: Surgical Specimen RECD BY: Eliana Abreu ENTERED: 04/08/22 13:02 SP TYPE: Eso OT DR: Lissette Shetty V Tissues: 1 - ESOPHAGUS BIOPSY Procedures: GROSS AND MICRO LEVEL 4 Comments: [id number]
[2022-04-08 11:13] VITALS: BP 109/73; PULSE 65; RESP 16; TEMP 36.5; O2SAT 96
[2022-04-08 11:49] VITALS: BP 132/94; PULSE 58; RESP 16; TEMP 36.6; O2SAT 96
--- NOTE | 2022-04-08 12:12 | W.ANESPOSTOP ---
Postoperative Evaluation Date, Time and Location Date Performed: 04/08/22 Time Performed: 11:30 Patient Location: Day Surgery Unit Vital Signs Most Recent Imported Vital Signs: Most Recent Vital Signs Temp Pulse Resp BP Pulse Ox 36.6 C 58 L 16 132/94 H 96 04/08/22 11:49 04/08/22 11:49 04/08/22 11:49 04/08/22 11:49 04/08/22 11:49 Pain Score Most Recent Pain Score: Most Recent Pain Score Pain Level 0 04/08/22 11:49 Assessment Mental Status: Awake (Alert & Oriented to Patient Baseline) Airway and Respiratory Function: Patent airway with normal (patient baseline) respiratory exam Cardiovascular Function: Hemodynamically Stable Hydration Status: Adequately Hydrated Nausea & Vomiting: No Nausea or Vomiting Pain: Pt. Denies Any Pain Peripheral Nerve Block: Patient did not receive a nerve block
== END 2022-04-08 12:18 | disposition home or self-care (01) ==
PROVIDERS: PCP Family Medicine; Visit Provider Surgery
PROC: (CPT 43239; principal; 2022-04-08 10:45)
DX: K22.70 Barrett's esophagus without dysplasia (principal); Z12.11 Encounter for screening for malignant neoplasm of colon; K22.89 Other specified disease of esophagus
CPT/HCPCS: 43239; 45378; 88305

== ENCOUNTER → 2022-04-13 01:50 | Outpatient (CLI) | payer MEDICARE, SELFPAY ==
--- NOTE | 2022-04-13 12:00 | DI.MAMMO_ITS ---
Exam(s) MAMMO SCREENING EXAM: MAMMO SCREENING CLINICAL HISTORY: SCREENING, Z12.39 TECHNIQUE: Mammograms were interpreted according to the usual protocol including computer analysis w [employer] CAD system, tomosynthesis and C-view imaging. COMPARISON: FINDINGS: The breasts are of moderate density with fairly symmetrical distribution of fibroglandular tissue. N o dominant mass or clumped microcalcification is identified in either breast. The current examinatio n is compared with previous examinations including January 2017 and there has been no gross interval kiran nge in appearance comparison previous studies. IMPRESSION: No specific evidence of malignancy at this time. Routine screening examinations are suggested at yea rly intervals in this age group according to the ACR guidelines. BI-RADS Category 1 - Negative Breast Density - Category B - Scattered areas of fibroglandular density
== END ==
PROVIDERS: PCP Family Medicine; Visit Provider Physician Assistant Medical
DX: Z12.31 Encounter for screening mammogram for malignant neoplasm of breast (principal)
CPT/HCPCS: 77063; 77067